=== PATIENT | female | born 1985 ===

== ENCOUNTER 2016-12-10 22:54 | Emergency (ER) | payer MEDICAID, OTHER ==
[2016-12-10 22:54] VITALS: BMI 29.5
[2016-12-10] MEDS ORDERED: Sodium Chloride 0.9% 1,000 ML IV ONE (23:45)
--- NOTE | 2016-12-11 00:05 | C.PDOC ---
History Of Present Illness 31 year old patient presents to the ED complaining of upper abdominal pain for the past 2 days. She also complains of mild vaginal spotting. Patient is 4 months . Patient denies fever, nausea, vomiting, diarrhea, dysuria, back pain, or heavy vaginal bleeding. Time Seen by Provider: 12/10/16 23:44 Chief Complaint (Nursing): Abdominal Pain History Per: Patient History/Exam Limitations: no limitations Onset/Duration Of Symptoms: Days (2) Current Symptoms Are (Timing): Still Present Context: Other Severity: Moderate Pain Scale Rating Of: 4 Location Of Pain/Discomfort: Epigastric Radiation Of Pain To:: None Quality Of Discomfort: "Pain" Associated Symptoms: Other (mild vaginal bleeding) Exacerbating Factors: None Alleviating Factors: None Last Bowel Movement: Today Recent travel outside of the [place]: No Past Medical History Reviewed: Historical Data, Nursing Documentation, Vital Signs Vital Signs: Last Vital Signs Temp 98.7 F 12/10/16 23:19 Pulse 88 12/10/16 23:19 Resp 20 12/10/16 23:19 BP 118/80 12/10/16 23:19 Pulse Ox 97 12/11/16 02:27 - Medical History PMH: Anemia, Anxiety, Asthma, Gastritis, Migraine - [facility] Procedures INJECT/INFUSE NEC (05/30/06) Family History: States: Unknown Family Hx - Social History Hx Tobacco Use: No Hx Alcohol Use: No Hx Substance Use: No - Immunization History Hx Tetanus Toxoid Vaccination: No Hx Influenza Vaccination: No Hx Pneumococcal Vaccination: No Review Of Systems Except As Marked, All Systems Reviewed And Found Negative. Constitutional: Negative for: Fever Gastrointestinal: Positive for: Abdominal Pain (upper). Negative for: Nausea, Vomiting, Diarrhea Genitourinary: Positive for: Vaginal Bleeding (mild). Negative for: Dysuria Musculoskeletal: Negative for: Back Pain Physical Exam - Physical Exam Appears: Non-toxic, No Acute Distress Skin: Warm, Dry Head: Atraumatic, Normacephalic Neck: Normal ROM, Supple Chest: Symmetrical Cardiovascular: Rhythm Regular Respiratory: Normal Breath Sounds, No Rales, No Rhonchi, No Wheezing Gastrointestinal/Abdominal: Soft, Tenderness (bilateral quadrants of the epigastrium), Distention (due to ), No Guarding, No Rebound Back: Normal Inspection, No CVA Tenderness Extremity: Normal ROM Neurological/Psych: Oriented x3, Normal Motor, Normal Sensation Gait: Steady ED Course And Treatment - Laboratory Results Result Diagrams: 12/11/16 01:12 12/11/16 01:12 O2 Sat by Pulse Oximetry: 97 (room air) Pulse Ox Interpretation: Normal - CT Scan/US Pelvic US Other Rad Studies (CT/US): Read By Radiologist (Vikki Smith MD), Radiology Report Reviewed CT/US Interpretation: EXAM: US Pelvis Complete, Transabdominal. US Pelvis, Transvaginal. CLINICAL HISTORY: 31 years old, female; Signs and symptoms; Other: Vag bleeding; ; Additional info: Suprapubic pain/ tenderness/ spotting. TECHNIQUE: Real-time transabdominal and transvaginal pelvic ultrasound (complete) with image documentation. Transvaginal imaging was used for better evaluation of the endometrium and adnexa. COMPARISON: No relevant prior studies available. FINDINGS: A single intrauterine gestation is identified in a transverse lie with the placenta anterior. motion is detected. The cervix measures 4.1 cm, and is closed. The placenta is located greater than 2 cm from the cervical os. The femur length measures 2.5 cm, corresponding to an approximate gestational age of 17 weeks. and 3 days. The head circumference measures 14 mm, corresponding to an approximate gestational age of 17. weeks and 2 days. The cord and inserts on the midline of the abdomen. A 3 vessel cord is detected. No hydronephrosis is detected. A four- chamber heart is noted. The spine is visualized in its entirety, although only in the sagittal plane but appears to be covered. cardiac activity is identified at a rate of 131 beats per minute. The BPD measures 3.6 cm, corresponding to an approximate gestational age of 17 weeks and 0. days. The abdominal circumference measures 11.8 cm, corresponding to an approximate gestational age. of 17 weeks and 4 days. The estimated weight measures 197 g +/ -29 g. Despite prolonged interrogation, neither ovary was visualized. No free fluid is detected within the pelvis. IMPRESSION: Limited ultrasound examination demonstrates a single intrauterine gestation with an approximate. gestational age of 17 weeks and 2 days. cardiac activity is identified. motion is detected. Additional measurements as detailed above. Short- term followup (with a formal anatomy scan) is suggested. Progress Note: Plan: Labs, IV fluids, Pelvic US Disposition Counseled Patient/Family Regarding: Diagnosis - Disposition Referrals: [facility] [Outside] Disposition: HOME/ ROUTINE Disposition Time: 03:33 Condition: STABLE Instructions: Abdominal Pain in (ED) - POA Present On Arrival: None - Clinical Impression Clinical Impression: , Abdominal pain affecting - Scribe Statement The provider has reviewed the documentation as recorded by the Scribe Sharri Hunt Provider Attestation: All medical record entries made by the Scribe were at my direction and personally dictated by me. I have reviewed the chart and agree that the record accurately reflects my personal performance of the history, physical exam, medical decision making, and the department course for this patient. I have also personally directed, reviewed, and agree with the discharge instructions and disposition.
[2016-12-11 01:19] LABS: BASO % 0.4 % (0.0-2.0); EOS # 0.4 K/uL (0.0-0.7); EOS % 3.6 % (0.0-4.0); HEMATOCRIT 35.7 % (34.0-47.0); LYMPH # 2.3 K/uL (1.0-4.3); LYMPH % 21.8 % (20.0-40.0); MEAN CELL VOLUME 85.6 fL (81.0-99.0); MEAN CORPUSCULAR HEMOGLOBIN 28.3 pg (27.0-31.0); MEAN CORPUSCULAR HGB CONC 33.1 g/dL (33.0-37.0); MEAN PLATELET VOLUME 8.5 fL (7.2-11.7); MONO # 0.9 K/uL (0.0-0.8); MONO % 8.4 % (0.0-10.0); RED CELL DISTRIBUTION WIDTH 13.6 % (11.5-14.5); WHITE BLOOD COUNT 10.6 K/uL (4.8-10.8)
[2016-12-11 01:25] LABS: CHLORIDE 104 mmol/L (98-107); SODIUM 136 mmol/L (132-148)
[2016-12-11 01:26] LABS: POTASSIUM 3.6 mmol/L (3.6-5.2)
[2016-12-11 01:28] LABS: ALB/GLOB RATIO 1.1 (1.0-2.1); ALKALINE PHOSPHATASE 49 U/L (38-126); AST/SGOT 16 U/L (14-36); BILIRUBIN,TOTAL 0.6 mg/dL (0.2-1.3); BLOOD UREA NITROGEN 9 mg/dL (7-17); CARBON DIOXIDE 22 mmol/L (22-30); GFR AFRICAN-AMERICAN > 60; GLUCOSE,RANDOM 93 mg/dL (65-105); TOTAL PROTEIN 6.5 g/dL (6.3-8.3)
[2016-12-11 01:29] LABS: ALT/SGPT 14 U/L (9-52)
[2016-12-11 01:56] LABS: CALCIUM 8.4 mg/dl (8.6-10.4)
[2016-12-11 03:39] VITALS: BP 100/66; PULSE 90; RESP 16; TEMP 98.3; O2SAT 98
--- NOTE | 2016-12-11 08:16 | US ---
EXAM: US Pelvis Complete, Transabdominal US Pelvis, Transvaginal CLINICAL HISTORY: 31 years old, female; Signs and symptoms; Other: Vag bleeding; ; Additional info: Suprapubic pain/ tenderness/ spotting TECHNIQUE: Real-time transabdominal and transvaginal pelvic ultrasound (complete) with image documentation. Transvaginal imaging was used for better evaluation of the endometrium and adnexa. COMPARISON: No relevant prior studies available. FINDINGS: A single intrauterine gestation is identified in a transverse lie with the placenta anterior. motion is detected. The cervix measures 4.1 cm, and is closed. The placenta is located greater than 2 cm from the cervical os. The femur length measures 2.5 cm, corresponding to an approximate gestational age of 17 weeks and 3 days. The head circumference measures 14 mm, corresponding to an approximate gestational age of 17 weeks and 2 days. The cord and inserts on the midline of the abdomen. A 3 vessel cord is detected. No hydronephrosis is detected. A four-chamber heart is noted. The spine is visualized in its entirety, although only in the sagittal plane but appears to be covered. cardiac activity is identified at a rate of 131 beats per minute. The BPD measures 3.6 cm, corresponding to an approximate gestational age of 17 weeks and 0 days. The abdominal circumference measures 11.8 cm, corresponding to an approximate gestational age of 17 weeks and 4 days. The estimated weight measures 197 g +/ -29 g. Despite prolonged interrogation, neither ovary was visualized. No free fluid is detected within the pelvis. IMPRESSION: Limited ultrasound examination demonstrates a single intrauterine gestation with an approximate gestational age of 17 weeks and 2 days. cardiac activity is identified. motion is detected. Additional measurements as detailed above. Short-term followup (with a formal anatomy scan) is suggested.
== END 2016-12-11 03:44 | disposition home or self-care (01) ==
LOC: C.ER 22:54
DX: O26.892 Other specified pregnancy related conditions, second trimester (principal); R10.13 Epigastric pain; Z3A.17 17 weeks gestation of pregnancy
CPT/HCPCS: 76815; 80053; 84702; 85025; 85610; 85730; 86850; 86900; 99284; J7040

== ENCOUNTER 2016-12-16 20:18 | Inpatient (IN) | payer MEDICAID ==
[2016-12-16 20:18] VITALS: BMI 29.5
--- NOTE | 2016-12-16 21:16 | C.PDOC ---
History Of Present Illness 31 year old patient, with a past medical history of Anemia, Anxiety, Asthma, Gastritis, and Migraine, presents to the ED complaining of episodes of anxiety, dizziness, and shaking for the past couple of months. Patient is also 4 months . She followed up with her physician last month about her episodes. She starts to feel dizzy and light headed, then she begins to shake. She also bites her tongue, becomes unresponsive, and wakes up forgetting what happened. The episodes last about 3-5 minutes and patient has been amnesic about them. Patient denies fever, nausea, vomiting, shortness of breath, chest pain, numbness, weakness, or headaches. She was referred to the ED by Dr Vargas for admission and neurology evaluation. Family History: Patient's sister has a history of seizures. Time Seen by Provider: 12/16/16 20:42 Chief Complaint (Nursing): Seizure History Per: Patient, Family () History/Exam Limitations: no limitations Recent Seizure Activity Began: Weeks Ago: (for a couple of months) Length Of Seizures (Duration): Minutes (3-5) Quality Of Seizure: Generalized Associated Symptoms: Bit Tongue Post-ictal Period: Duration Unknown Severity: None Pain Scale Rating Of: 0 Recent travel outside of the [place]: No Past Medical History Reviewed: Historical Data, Nursing Documentation, Vital Signs Vital Signs: Last Vital Signs Temp 98.3 F 12/16/16 20:34 Pulse 100 H 12/16/16 20:34 Resp 18 12/16/16 20:34 BP 117/80 12/16/16 20:34 Pulse Ox 98 12/16/16 21:23 - Medical History PMH: Anemia, Anxiety, Asthma, Gastritis, Migraine - [facility] Procedures INJECT/INFUSE NEC (05/30/06) Family History: States: Unknown Family Hx - Social History Hx Tobacco Use: No Hx Alcohol Use: No Hx Substance Use: No - Immunization History Hx Tetanus Toxoid Vaccination: No Hx Influenza Vaccination: No Hx Pneumococcal Vaccination: No Review Of Systems Except As Marked, All Systems Reviewed And Found Negative. Constitutional: Negative for: Fever Cardiovascular: Positive for: Light Headedness. Negative for: Chest Pain Respiratory: Negative for: Shortness of Breath Gastrointestinal: Negative for: Nausea, Vomiting Neurological: Positive for: Seizures, Dizziness, Other (shaking). Negative for : Weakness, Numbness, Headache Psych: Positive for: Anxiety Physical Exam - Physical Exam Appears: Non-toxic, No Acute Distress Skin: Warm, Dry Head: Atraumatic, Normacephalic Eye(s): bilateral: Normal Inspection, PERRL, EOMI Ear(s): Bilateral: Normal Nose: Normal Oral Mucosa: Moist Throat: Normal Neck: Normal ROM, Supple Chest: Symmetrical Cardiovascular: Rhythm Regular Respiratory: Normal Breath Sounds, No Rales, No Rhonchi, No Wheezing Gastrointestinal/Abdominal: Soft, No Tenderness, No Guarding, No Rebound Back: Normal Inspection, No CVA Tenderness, No Vertebral Tenderness Extremity: Normal ROM Neurological/Psych: Oriented x3, Normal Speech, Normal Cognition, Normal Motor, Normal Sensation Gait: Steady ED Course And Treatment - Laboratory Results Result Diagrams: 12/16/16 21:15 12/16/16 21:15 Lab Interpretation: Abnormal (Mild hypokalemia, HCO3 21) O2 Sat by Pulse Oximetry: 98 (room air) Pulse Ox Interpretation: Normal - Physician Consult Information Time Consulting Physician Contacted: 22:22 Physician Contacted: Meño Vargas Outcome Of Conversation: Patient to be admitted for neurology evaluation and treatment. Case discussed with Dr Higgins who advises starting Keppra 500mg BID and he will see her in consult. Medical Decision Making Medical Decision Making: Plan: * Labs Progress: heart tones are present in the LLQ at a rate of 140 bpm. Disposition - Disposition Disposition: HOSPITALIZED Disposition Time: 22:23 Condition: STABLE - POA Present On Arrival: None - Clinical Impression Clinical Impression: Seizure disorder, - Scribe Statement The provider has reviewed the documentation as recorded by the Juan Luisibteetee Hunt Provider Attestation: All medical record entries made by the Juan Luisibteetee were at my direction and personally dictated by me. I have reviewed the chart and agree that the record accurately reflects my personal performance of the history, physical exam, medical decision making, and the department course for this patient. I have also personally directed, reviewed, and agree with the discharge instructions and disposition.
[2016-12-16 21:22] LABS: BASO # 0.1 K/uL (0.0-0.2); BASO % 0.5 % (0.0-2.0); EOS # 0.2 K/uL (0.0-0.7); EOS % 1.8 % (0.0-4.0); HEMATOCRIT 36.5 % (34.0-47.0); LYMPH # 2.1 K/uL (1.0-4.3); LYMPH % 19.5 % (20.0-40.0); MEAN CORPUSCULAR HEMOGLOBIN 28.6 pg (27.0-31.0); MEAN CORPUSCULAR HGB CONC 34.1 g/dL (33.0-37.0); MEAN PLATELET VOLUME 8.5 fL (7.2-11.7); MONO # 0.6 K/uL (0.0-0.8); MONO % 5.9 % (0.0-10.0); RED CELL DISTRIBUTION WIDTH 13.6 % (11.5-14.5); WHITE BLOOD COUNT 10.6 K/uL (4.8-10.8)
[2016-12-16 21:33] LABS: CHLORIDE 101 mmol/L (98-107); SODIUM 133 mmol/L (132-148)
[2016-12-16 21:34] LABS: POTASSIUM 3.2 mmol/L (3.6-5.2)
[2016-12-16 21:35] LABS: GFR AFRICAN-AMERICAN > 60
[2016-12-16 21:36] LABS: ALB/GLOB RATIO 1.1 (1.0-2.1); ALKALINE PHOSPHATASE 53 U/L (38-126); ALT/SGPT 12 U/L (9-52); AST/SGOT 15 U/L (14-36); BILIRUBIN,TOTAL 0.5 mg/dL (0.2-1.3); BLOOD UREA NITROGEN 8 mg/dL (7-17); CARBON DIOXIDE 21 mmol/L (22-30); GLUCOSE,RANDOM 182 mg/dL (65-105); TOTAL PROTEIN 6.8 g/dL (6.3-8.3)
[2016-12-16 21:37] LABS: CALCIUM 8.7 mg/dl (8.6-10.4)
[2016-12-16] MEDS ORDERED: Potassium Chloride 20 mEq ER Tab PO STA (21:40)
[2016-12-16] MEDS ORDERED: Potassium Chloride 20 mEq ER Tab PO ONE (21:48)
[2016-12-16 21:49] LABS: RBC URINE 13 /hpf (0-3); TRANSITIONAL EPITHIAL < 1 /hpf (0-3); URINE BACTERIA RARE (<OCC); URINE BILIRUBIN NEGATIVE (NEGATIVE); URINE BLOOD 2+ (NEGATIVE); URINE COLOR Yellow (YELLOW); URINE GLUCOSE (UA) 3+ mg/dL (Normal); URINE KETONE 1+ mg/dL (NEGATIVE); URINE LEUKOCYTE ESTERASE NEG Leu/uL (Negative); URINE PROTEIN NEGATIVE (NEGATIVE); WBC URINE 3 /hpf (0-5)
[2016-12-16] MEDS ORDERED: Magnesium Sulfate 1 gm in D5W 1 GM/100 ML BAG IVPB STA (23:24)
[2016-12-16] MEDS ORDERED: Magnesium Sulfate 1 gm in D5W 1 GM/100 ML BAG IVPB ONE (23:31)
[2016-12-17] MEDS ORDERED: Magnesium Sulfate 1 gm in D5W 1 GM/100 ML BAG IVPB ONE (00:01)
[2016-12-17 09:16] LABS: BASO % 0.5 % (0.0-2.0); EOS # 0.3 K/uL (0.0-0.7); EOS % 3.5 % (0.0-4.0); HEMATOCRIT 36.3 % (34.0-47.0); LYMPH # 1.8 K/uL (1.0-4.3); LYMPH % 22.3 % (20.0-40.0); MEAN CELL VOLUME 85.2 fL (81.0-99.0); MEAN CORPUSCULAR HEMOGLOBIN 28.7 pg (27.0-31.0); MEAN CORPUSCULAR HGB CONC 33.7 g/dL (33.0-37.0); MEAN PLATELET VOLUME 8.1 fL (7.2-11.7); MONO # 0.5 K/uL (0.0-0.8); MONO % 6.2 % (0.0-10.0); RED CELL DISTRIBUTION WIDTH 13.4 % (11.5-14.5); WHITE BLOOD COUNT 8.3 K/uL (4.8-10.8)
[2016-12-17 09:29] LABS: CHLORIDE 104 mmol/L (98-107)
[2016-12-17 09:30] LABS: SODIUM 134 mmol/L (132-148)
[2016-12-17 09:32] LABS: ALKALINE PHOSPHATASE 47 U/L (38-126); ALT/SGPT 12 U/L (9-52); AST/SGOT 14 U/L (14-36); BILIRUBIN,TOTAL 0.6 mg/dL (0.2-1.3); BLOOD UREA NITROGEN 8 mg/dL (7-17); CARBON DIOXIDE 21 mmol/L (22-30); GFR AFRICAN-AMERICAN > 60; GLUCOSE,RANDOM 113 mg/dL (65-105); TOTAL PROTEIN 6.3 g/dL (6.3-8.3)
[2016-12-17 09:33] LABS: CALCIUM 8.2 mg/dl (8.6-10.4); MAGNESIUM 1.9 mg/dL (1.6-2.3); PHOSPHOROUS 4.6 mg/dL (2.5-4.5)
--- NOTE | 2016-12-17 12:35 | CP.PCM.HP ---
History of Present Illness - History of Present Illness History of Present Illness: Cheif complain: seizure episode 31 year old patient who is 4 months , with a past medical history of Anemia, Anxiety, Asthma, Gastritis, and Migraine, presents to the ED complaining of episodes of anxiety, dizziness, and shaking for the past couple of months. Patient is also 4 months . She followed up with her physician last month about her episodes. She starts to feel dizzy and light headed, then she begins to shake. She also bites her tongue, becomes unresponsive, and wakes up forgetting what happened. The episodes last about 3- 5 minutes and patient has been amnesic about them. Patient denies fever, nausea , vomiting, shortness of breath, chest pain, numbness, weakness, or headaches. She was seen by me in office and was admitted inpatient for neurology evaluation. Family History: Patient's sister has a history of seizures. Present on Admission - Present on Admission Any Indicators Present on Admission: No Review of Systems - Review of Systems Systems not reviewed;Unavailable: Acuity of Condition - Constitutional Constitutional: Fatigue, Lethargy - EENT Eyes: absent: As Per HPI, Blind Spots, Blurred Vision, Change in Vision, Decreased Night Vision, Diplopia, Discharge, Dry Eye, Exophthalmos, Floaters, Irritation, Itchy Eyes, Loss of Peripheral Vision, Pain, Photophobia, Requires Corrective Lenses, Sees Flashes, Spots in Vision, Tunnel Vision, Other Visual Disturbances, Loss of Vision, Other Nose/Mouth/Throat: absent: As Per HPI, Epistaxis, Nasal Congestion, Nasal Discharge, Nasal Obstruction, Nasal Trauma, Nose Pain, Post Nasal Drip, Sinus Pain, Sinus Pressure, Bleeding Gums, Change in Voice, Dental Pain, Dry Mouth, Dysphagia, Halitosis, Hoarsness, Lip Swelling, Mouth Lesions, Mouth Pain, Odynophagia, Sore Throat, Throat Swelling, Tongue Swelling, Facial Pain, Neck Pain, Neck Mass, Other - Cardiovascular Cardiovascular: Dyspnea - Respiratory Respiratory: absent: As Per HPI, Cough, Dyspnea, Hemoptysis, Dyspnea on Exertion , Wheezing, Snoring, Stridor, Pain on Inspiration, Chest Congestion, Excessive Mucous Production, Change in Mucous Color, Pain with Coughing, Other - Menstruation Menstruation: Amenorrhea, Other Additional comments: - Musculoskeletal Musculoskeletal: absent: As Per HPI, Abnormal Gait, Arthralgias, Atrophy, Back Pain, Deformity, Joint Swelling, Limited Range of Motion, Loss of Height, Muscle Cramps, Muscle Weakness, Myalgias, Neck Pain, Numbness, Radiating Pain into Limb, Stiffness, Tingling, Other - Integumentary Integumentary: absent: As Per HPI, Acne, Alopecia, Bleeding Lesions, Change in Hair, Change in Nails, Change in Pigmentation, Changing Lesions, Dry Skin, Erythema, Furuncle, Hirsutism, Lesions, New Lesions, Non-Healing Lesions, Photosensitivity, Pruritus, Rash, Skin Pain, Skin Ulcer, Sores, Striae, Swelling , Unusual Bruising, Wounds, Jaundice, Other Past Patient History - Infectious Disease Hx of Infectious Diseases: None - Past Medical History & Family History Past Medical History?: Yes - Past Social History Smoking Status: Never Smoked - CARDIAC Hx Cardiac Disorders: No - PULMONARY Hx Respiratory Disorders: Yes Hx Asthma: Yes - NEUROLOGICAL Hx Neurological Disorder: Yes Hx Migraine: Yes Hx Seizures: Yes - HEENT Hx HEENT Problems: No - RENAL Hx Chronic Kidney Disease: No - ENDOCRINE/METABOLIC Hx Endocrine Disorders: No - HEMATOLOGICAL/ONCOLOGICAL Hx Blood Disorders: Yes Hx Anemia: Yes - INTEGUMENTARY Hx Dermatological Problems: No - MUSCULOSKELETAL/RHEUMATOLOGICAL Hx Musculoskeletal Disorders: No Hx Falls: No - GASTROINTESTINAL Hx Gastrointestinal Disorders: Yes Hx Gastritis: Yes - GENITOURINARY/GYNECOLOGICAL Hx Genitourinary Disorders: No - PSYCHIATRIC Hx Psychophysiologic Disorder: Yes Hx Anxiety: Yes Hx Substance Use: No - SURGICAL HISTORY Hx Surgeries: Yes Hx Dilation and Curettage: Yes (for missed at 14 wga) - ANESTHESIA Hx Anesthesia: Yes Hx Anesthesia Reactions: No Hx Malignant Hyperthermia: No Meds Allergies/Adverse Reactions: Allergies Allergy/AdvReac Type Severity Reaction Status Date / Time morphine Allergy RASH Verified 12/23/16 02:51 onion Allergy ITCHING Verified 12/23/16 02:51 Physical Exam - Constitutional Appears: No Acute Distress - Head Exam Head Exam: ATRAUMATIC, NORMAL INSPECTION, NORMOCEPHALIC - Eye Exam Eye Exam: EOMI, Normal appearance, PERRL Pupil Exam: NORMAL ACCOMODATION, PERRL - ENT Exam ENT Exam: Mucous Membranes Moist, Normal Exam - Respiratory Exam Respiratory Exam: Clear to Auscultation Bilateral, NORMAL BREATHING PATTERN - Cardiovascular Exam Cardiovascular Exam: REGULAR RHYTHM, +S1, +S2 - GI/Abdominal Exam GI & Abdominal Exam: Normal Bowel Sounds, Soft. absent: Tenderness - Rectal Exam Rectal Exam: Deferred, NORMAL INSPECTION Results - Vital Signs Recent Vital Signs: Last Vital Signs Temp 98 F 12/17/16 00:20 Pulse 84 12/17/16 00:20 Resp 20 12/17/16 00:20 BP 111/75 12/17/16 00:20 Pulse Ox 97 12/17/16 00:20 - Labs Result Diagrams: 12/18/16 11:49 12/18/16 11:49 Labs: Laboratory Results - last 24 hr 12/16/16 12/17/16 12/17/16 23:16 09:07 09:07 WBC 8.3 RBC 4.26 Hgb 12.2 Hct 36.3 MCV 85.2 MCH 28.7 MCHC 33.7 RDW 13.4 Plt Count 255 MPV 8.1 Neut % (Auto) 67.5 Lymph % (Auto) 22.3 Lares % (Auto) 6.2 Eos % (Auto) 3.5 Baso % (Auto) 0.5 Neut # 5.6 Lymph # 1.8 Lares # 0.5 Eos # 0.3 Baso # 0.0 Sodium 134 Potassium 4.0 Chloride 104 Carbon Dioxide 21 L Anion Gap 13 BUN 8 Creatinine 0.4 L Est GFR ( Amer) > 60 Est GFR (Non-Af Amer) > 60 POC Glucose (mg/dL) 108 Random Glucose 113 H Calcium 8.2 L Phosphorus 4.6 H Magnesium 1.9 Total Bilirubin 0.6 AST 14 ALT 12 Alkaline Phosphatase 47 Total Protein 6.3 Albumin 3.1 L Globulin 3.1 Albumin/Globulin Ratio 1.0 Prolactin 113.3 H Assessment & Plan (1) Status: Acute (2) Seizure disorder Status: Acute
[2016-12-17] MEDS ORDERED: Mag&Al/Simet/Diphen/Lido 237 ML KIT PO PRN (14:56)
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
--- NOTE | 2016-12-17 15:42 | CP.PCM.PN ---
<Marie Mcintosh - Last Filed: 12/17/16 15:38> Subjective - Date & Time of Evaluation Date of Evaluation: 12/17/16 Time of Evaluation: 09:00 - Subjective Subjective: House Doctor was called to evaluate patient. She was have tremors and had the sensation of biting her tongue. She did not actively convulse, lose consciousness or any urinary or bowel incontinence. The patient stated she has been having these episodes for the past 6 months prior to her . She was able to converse with me throughout the entire episode which lasted less than 3-4 minutes. She stated she never had a history of seizures. She was given a dose of Keppra the night prior in the ED which stopped her symptoms. OB was consulted. Neurology was consulted, EEG and Brain MRI was ordered. No ativan was given (CAT D in ) and as per Dr. Higgins no keppra was to be administered. Objective - Vital Signs/Intake and Output Vital Signs (last 24 hours): Temp Pulse Resp BP Pulse Ox 98 F 84 20 111/75 97 12/17/16 00:20 12/17/16 00:20 12/17/16 00:20 12/17/16 00:20 12/17/16 00:20 - Medications Medications: Current Medications Folic Acid (Folic Acid) 4 mg PO DAILY [facility] Multivit/Folic Acid/Iron () 1 tab PO DAILY [facility] Saliva Substitute (First Magic Mouthwash) 5 ml PO Q8 PRN - Labs Labs: 12/17/16 09:07 12/17/16 09:07 <Kelley Nguyễn V - Last Filed: 12/18/16 23:40> Objective - Vital Signs/Intake and Output Vital Signs (last 24 hours): Temp Pulse Resp BP Pulse Ox 98.2 F 104 H 18 112/73 95 12/18/16 16:00 12/18/16 19:53 12/18/16 16:00 12/18/16 16:00 12/18/16 16:00 Intake and Output: 12/18/16 12/19/16 18:59 06:59 Intake Total 1240 Balance 1240 - Medications Medications: Current Medications Acetaminophen (Tylenol 325mg Tab) 650 mg PO Q6 PRN PRN Reason: Headache Last Admin: 12/18/16 20:57 Dose: 650 mg Folic Acid (Folic Acid) 4 mg PO DAILY [facility] Last Admin: 12/18/16 09:49 Dose: 4 mg Levetiracetam (Keppra) 750 mg PO BID [facility] Last Admin: 12/18/16 17:45 Dose: 750 mg Multivit/Folic Acid/Iron () 1 tab PO DAILY [facility] Last Admin: 12/18/16 09:49 Dose: 1 tab Saliva Substitute (First Magic Mouthwash) 5 ml PO Q8 PRN Attending/Attestation - Attestation I have personally seen and examined this patient.: Yes I have fully participated in the care of the patient.: Yes I have reviewed all pertinent clinical information, including history, physical exam and plan: Yes Notes (Text): Late entry: Hospitalist Note Asked by nursing staff to evaluate patient who appears to have seizure. Patient reports at bedside she has been having seizures for the past 6 months prior to becoming . Patient does not know why. She is awake, alert, oriented X3. Patient reports she had received Keppra ( category C) which she reports helps her symptoms. Patient describes her seizures as twitching motion of upper extremities and sensation of biting her tongue while awake. She reports she has not had a workup for seizures. I discussed risk and benefit of benzos such as Ativan with patient given that patient is , ativan not given at this time, and she reports is feeling better. Resident spoke with neurologist on the case, Dr Higgins who recommended for EEG and Brain MRI was ordered and ob-shoddy mill worker consulted on the case.
[2016-12-17] MEDS: Prenatal Multivit/Folic Acid/Iron Tab PO SCH (16:37)
--- NOTE | 2016-12-17 17:37 | CP.PCM.CON ---
History of Present Illness - History of Present Illness History of Present Illness: Ms. Hopkins is a 31-year-old woman with a past medical history of migraine headaches, anxiety and epilepsy with a diagnosis 6 months ago, who was started on Keppra and was doing well. However, she became and stopped Keppra due to concern for the fetus. She is now 4 months and has been having increased frequency of episodes of confusion, tongue biting and jerky movements that last 3-5 minutes with subsequent lack of recall for the events and transient disorientation. Review of Systems - Review of Systems All systems: reviewed and no additional remarkable complaints except Past Patient History - Infectious Disease Hx of Infectious Diseases: None - Past Medical History & Family History Past Medical History?: Yes - Past Social History Smoking Status: Never Smoked - CARDIAC Hx Cardiac Disorders: No - PULMONARY Hx Respiratory Disorders: Yes Hx Asthma: Yes - NEUROLOGICAL Hx Neurological Disorder: Yes Hx Migraine: Yes Hx Seizures: Yes - HEENT Hx HEENT Problems: No - RENAL Hx Chronic Kidney Disease: No - ENDOCRINE/METABOLIC Hx Endocrine Disorders: No - HEMATOLOGICAL/ONCOLOGICAL Hx Blood Disorders: Yes Hx Anemia: Yes - INTEGUMENTARY Hx Dermatological Problems: No - MUSCULOSKELETAL/RHEUMATOLOGICAL Hx Musculoskeletal Disorders: No Hx Falls: No - GASTROINTESTINAL Hx Gastrointestinal Disorders: Yes Hx Gastritis: Yes - GENITOURINARY/GYNECOLOGICAL Hx Genitourinary Disorders: No - PSYCHIATRIC Hx Psychophysiologic Disorder: Yes Hx Anxiety: Yes Hx Substance Use: No - SURGICAL HISTORY Hx Surgeries: Yes Hx Dilation and Curettage: Yes (for missed at 14 wga) - ANESTHESIA Hx Anesthesia: Yes Hx Anesthesia Reactions: No Hx Malignant Hyperthermia: No Meds Allergies/Adverse Reactions: Allergies Allergy/AdvReac Type Severity Reaction Status Date / Time morphine Allergy RASH Verified 12/16/16 20:40 onion Allergy ITCHING Verified 12/16/16 20:42 - Medications Medications: Current Medications Folic Acid (Folic Acid) 4 mg PO DAILY MAX Last Admin: 12/17/16 16:37 Dose: 4 mg Multivit/Folic Acid/Iron () 1 tab PO DAILY MAX Last Admin: 12/17/16 16:37 Dose: 1 tab Saliva Substitute (First Magic Mouthwash) 5 ml PO Q8 PRN Physical Exam - Constitutional Appears: Well - Head Exam Head Exam: ATRAUMATIC, NORMAL INSPECTION, NORMOCEPHALIC - Eye Exam Eye Exam: EOMI, Normal appearance, PERRL - ENT Exam ENT Exam: Mucous Membranes Moist, Normal Exam - Respiratory Exam Respiratory Exam: Clear to Auscultation Bilateral, NORMAL BREATHING PATTERN - Cardiovascular Exam Cardiovascular Exam: REGULAR RHYTHM, +S1, +S2 - GI/Abdominal Exam GI & Abdominal Exam: Normal Bowel Sounds, Soft. absent: Tenderness - Neurological Exam Neurological exam: Alert, CN II-XII Intact, Normal Gait, Oriented x3, Reflexes Normal - Expanded Neurological Exam Expanded Patient oriented to: person, place, time Cranial nerves: EOM's Intact: Normal, Nystagmus: Normal Cerebellar Function: Finger to Nose: Normal, Heel to Reynolds: Normal, Romberg: Normal Upper motor neuron: Babinski Sign: Normal Sensory exam: Lower Extremity 2 Point Discrimination: Normal, Lower Extremity Light Touch: Normal, Lower Extremity Pin Prick: Normal, Lower Extremity Temperature: Normal, Upper Extremity 2 Point Discrimination: Normal, Upper Extremity Light Touch: Normal, Upper Extremity Pin Prick: Normal, Upper Extremity Temperature: Normal Neuro motor strength exam: Left Upper Extremity: 5, Right Upper Extremity: 5, Left Lower Extremity: 5, Right Lower Extremity: 5 DTR: Achilles Tendon Left: 2+, Achilles Tendon Right: 2+, Bicep Left: 2+, Bicep Right: 2+, Brachioradialis Left: 2+, Brachioradialis Right: 2+, Patellar Left: 2 +, Patellar Right: 2+, Tricep Left: 2+, Tricep Right: 2+ - Psychiatric Exam Psychiatric exam: Normal Affect, Normal Mood - Skin Skin Exam: Dry, Intact, Normal Color, Warm Results - Vital Signs Recent Vital Signs: Last Vital Signs Temp 98 F 12/17/16 00:20 Pulse 84 12/17/16 00:20 Resp 20 12/17/16 00:20 BP 111/75 12/17/16 00:20 Pulse Ox 97 12/17/16 00:20 - Labs Result Diagrams: 12/17/16 09:07 12/17/16 09:07 Labs: Laboratory Results - last 24 hr 12/16/16 12/17/16 12/17/16 23:16 09:07 09:07 WBC 8.3 RBC 4.26 Hgb 12.2 Hct 36.3 MCV 85.2 MCH 28.7 MCHC 33.7 RDW 13.4 Plt Count 255 MPV 8.1 Neut % (Auto) 67.5 Lymph % (Auto) 22.3 [place] % (Auto) 6.2 Eos % (Auto) 3.5 Baso % (Auto) 0.5 Neut # 5.6 Lymph # 1.8 [place] # 0.5 Eos # 0.3 Baso # 0.0 Sodium 134 Potassium 4.0 Chloride 104 Carbon Dioxide 21 L Anion Gap 13 BUN 8 Creatinine 0.4 L Est GFR ( Amer) > 60 Est GFR (Non-Af Amer) > 60 POC Glucose (mg/dL) 108 Random Glucose 113 H Calcium 8.2 L Phosphorus 4.6 H Magnesium 1.9 Total Bilirubin 0.6 AST 14 ALT 12 Alkaline Phosphatase 47 Total Protein 6.3 Albumin 3.1 L Globulin 3.1 Albumin/Globulin Ratio 1.0 Prolactin 113.3 H Assessment & Plan (1) Seizure disorder Assessment and Plan: Due to the risk for both mother and child that seizures can create, I recommend resuming Keppra at 500 mg BID and following up with neurology as an outpatient. Lamictal is another possibility, but this would need to be titrated under supervision. An MRI of the brain without contrast and an EEG are also recommended. The patient was informed that she should not drive for 3 months after a seizure with loss of consciousness according to the law in [place]. Status: Acute
--- NOTE | 2016-12-17 22:49 | CP.PCM.PN ---
Subjective - Date & Time of Evaluation Date of Evaluation: 12/17/16 Time of Evaluation: 12:07 - Subjective Subjective: Pt seen and examined, also seen by neurology EEG and MRI brain ordered, pt has been started on keppra for seizure disorder, she is 4 months and her prolactin is high too, pt needs further evaluation for medical management Objective - Vital Signs/Intake and Output Vital Signs (last 24 hours): Temp Pulse Resp BP Pulse Ox 98.2 F 90 20 100/67 100 12/17/16 16:00 12/17/16 16:00 12/17/16 16:00 12/17/16 16:00 12/17/16 16:00 - Medications Medications: Current Medications Folic Acid (Folic Acid) 4 mg PO DAILY [facility] Last Admin: 12/17/16 16:37 Dose: 4 mg Levetiracetam (Keppra) 500 mg PO BID [facility] Last Admin: 12/17/16 17:46 Dose: 500 mg Multivit/Folic Acid/Iron () 1 tab PO DAILY [facility] Last Admin: 12/17/16 16:37 Dose: 1 tab Saliva Substitute (First Magic Mouthwash) 5 ml PO Q8 PRN - Labs Labs: 12/17/16 09:07 12/17/16 09:07 - Constitutional Appears: No Acute Distress - Head Exam Head Exam: ATRAUMATIC, NORMAL INSPECTION, NORMOCEPHALIC - Eye Exam Eye Exam: EOMI, Normal appearance, PERRL Pupil Exam: NORMAL ACCOMODATION, PERRL - Respiratory Exam Respiratory Exam: Clear to Ausculation Bilateral, NORMAL BREATHING PATTERN - Cardiovascular Exam Cardiovascular Exam: REGULAR RHYTHM, +S1, +S2. absent: Murmur - GI/Abdominal Exam GI & Abdominal Exam: Soft, Normal Bowel Sounds. absent: Tenderness Assessment and Plan (1) Status: Acute (2) Seizure disorder Status: Acute
--- NOTE | 2016-12-18 09:04 | US ---
PROCEDURE: Obstetrical ultrasound examination HISTORY: 4 month COMPARISON: 12/11/2016 TECHNIQUE: Transabdominal FINDINGS: There is a single live intrauterine gestation in breech presentation. The heart rate is 129 beats per minute. A grossly normal quantity of amniotic fluid is visualized. Cervix is closed and measures 4.5 cm in length. There is no evidence of placenta previa. A normal anterior placenta is identified. biometry yields a gestational age of 18 weeks 0 days. The HANNAH by ultrasound is 05/20/2017. There has been appropriate interval growth since the prior ultrasound examination. The EFW is 230.40 g. Limited review of anatomy demonstrates fluid distending the stomach and urinary bladder. A 4 chamber heart is demonstrated. The anterior abdominal wall is intact. IMPRESSION: Single live intrauterine gestation of approximately 18 weeks 0 days gestational age. No gross anatomic abnormality. anatomic evaluation was limited at this time. Breech presentation. Normal amniotic fluid volume. Anterior placenta. No previa. heart rate 129 beats per minute.
[2016-12-18] MEDS: Prenatal Multivit/Folic Acid/Iron Tab PO SCH (09:49)
[2016-12-18] MEDS ORDERED: Sodium Chloride 0.9% 1,000 ML IV SCH (11:15)
[2016-12-18 12:04] LABS: BASO # 0.1 K/uL (0.0-0.2); BASO % 0.7 % (0.0-2.0); EOS # 0.3 K/uL (0.0-0.7); EOS % 2.7 % (0.0-4.0); HEMATOCRIT 39.3 % (34.0-47.0); LYMPH # 1.8 K/uL (1.0-4.3); LYMPH % 17.8 % (20.0-40.0); MEAN CORPUSCULAR HEMOGLOBIN 28.7 pg (27.0-31.0); MEAN CORPUSCULAR HGB CONC 33.8 g/dL (33.0-37.0); MEAN PLATELET VOLUME 8.5 fL (7.2-11.7); MONO # 0.7 K/uL (0.0-0.8); MONO % 6.7 % (0.0-10.0); RED CELL DISTRIBUTION WIDTH 13.7 % (11.5-14.5); WHITE BLOOD COUNT 9.9 K/uL (4.8-10.8)
[2016-12-18 12:14] LABS: CHLORIDE 103 mmol/L (98-107); SODIUM 133 mmol/L (132-148)
--- NOTE | 2016-12-18 12:15 | CP.PCM.PN ---
Subjective - Date & Time of Evaluation Date of Evaluation: 12/18/16 Time of Evaluation: 12:09 - Subjective Subjective: Mrs. Hopkins was seen and examined today at bedside. She was in NAD, but slightly somnolent. She reportedly had a seizure while in the MRI this morning. She was given a .5 mg dose of Ativan. I asked for her Keppra to be increased to 750 mg BID. She complained of pain on the lateral aspect of the left side of her tongue where it was bitten. Objective - Vital Signs/Intake and Output Vital Signs (last 24 hours): Temp Pulse Resp BP Pulse Ox 98.1 F 83 20 101/66 96 12/18/16 07:05 12/18/16 07:05 12/18/16 07:05 12/18/16 07:05 12/18/16 07:05 Intake and Output: 12/18/16 12/18/16 06:59 18:59 Intake Total 600 Balance 600 - Medications Medications: Current Medications Folic Acid (Folic Acid) 4 mg PO DAILY [facility] Last Admin: 12/18/16 09:49 Dose: 4 mg Sodium Chloride (Sodium Chloride 0.9%) 1,000 mls @ 100 mls/hr IV .Q10H [facility] Stop: 12/18/16 21:14 Last Admin: 12/18/16 11:25 Dose: 100 mls/hr Levetiracetam (Keppra) 750 mg PO BID [facility] Multivit/Folic Acid/Iron () 1 tab PO DAILY [facility] Last Admin: 12/18/16 09:49 Dose: 1 tab Saliva Substitute (First Magic Mouthwash) 5 ml PO Q8 PRN - Labs Labs: 12/18/16 11:49 12/17/16 09:07 - Constitutional Appears: Well - Head Exam Head Exam: ATRAUMATIC, NORMAL INSPECTION, NORMOCEPHALIC - Eye Exam Eye Exam: EOMI, Normal appearance, PERRL - Neck Exam Neck Exam: Full ROM, Normal Inspection. absent: Lymphadenopathy - Respiratory Exam Respiratory Exam: Clear to Ausculation Bilateral, NORMAL BREATHING PATTERN - Cardiovascular Exam Cardiovascular Exam: REGULAR RHYTHM, +S1, +S2. absent: Murmur - GI/Abdominal Exam GI & Abdominal Exam: Soft, Normal Bowel Sounds. absent: Tenderness - Neurological Exam Neurological Exam: Alert, Awake, CN II-XII Intact, Normal Gait, Oriented x3 Neuro motor strength exam: Left Upper Extremity: 5, Right Upper Extremity: 5, Left Lower Extremity: 5, Right Lower Extremity: 5 - Psychiatric Exam Psychiatric exam: Normal Affect, Normal Mood - Skin Skin Exam: Dry, Intact, Normal Color, Warm Assessment and Plan (1) Seizure disorder Assessment & Plan: Refractory to the current dose of Keppra. Will increase to 750 mg BID and continue observation. Will follow MRI and EEG results. Status: Acute
[2016-12-18 12:16] LABS: BILIRUBIN,TOTAL 0.4 mg/dL (0.2-1.3); GFR AFRICAN-AMERICAN > 60
[2016-12-18 12:17] LABS: ALB/GLOB RATIO 0.9 (1.0-2.1); ALKALINE PHOSPHATASE 58 U/L (38-126); ALT/SGPT 18 U/L (9-52); AST/SGOT 13 U/L (14-36); BLOOD UREA NITROGEN 5 mg/dL (7-17); CARBON DIOXIDE 21 mmol/L (22-30); GLUCOSE,RANDOM 92 mg/dL (65-105); PHOSPHOROUS 3.5 mg/dL (2.5-4.5); TOTAL PROTEIN 6.7 g/dL (6.3-8.3)
[2016-12-18 12:18] LABS: CALCIUM 8.7 mg/dl (8.6-10.4); MAGNESIUM 1.8 mg/dL (1.6-2.3)
--- NOTE | 2016-12-18 13:50 | MRI ---
PROCEDURE: MRI BRAIN WITHOUT CONTRAST HISTORY: hx seizures COMPARISON: None. TECHNIQUE: Multiplanar, multisequence MR images of the brain were obtained without intravenous contrast enhancement. FINDINGS: HEMORRHAGE: None DWI: No evidence of an acute or early subacute infarction. BRAIN PARENCHYMA: No mass effect or edema. No atrophy or chronic microvascular ischemic changes. VENTRICLES: Unremarkable. No hydrocephalus. CRANIUM: Unremarkable. ORBITS: Grossly unremarkable. PARANASAL SINUSES/MASTOIDS: Clear VASCULAR SYSTEM: Skull base flow voids intact. OTHER FINDINGS: None. IMPRESSION: Unremarkable non contrast enhanced MRI of the brain.
--- NOTE | 2016-12-18 15:23 | CP.PCM.PN ---
<Eugenie Roblero - Last Filed: 12/18/16 15:13> Subjective - Date & Time of Evaluation Date of Evaluation: 12/18/16 Time of Evaluation: 10:50 - Subjective Subjective: Rapid Response called at 10:51 AM. Patient had a witnessed seizure while getting an MRI. This is a 31 year old (4 months) female with a history of seizures. She is being seen during this hospital stay by neurology, Dr. Higgins. Patient was awake and responding to all questions in full sentences. She was able to protect her airway. Denied CP or SOB. Palpable Bp was 112. Ativan 0.5 mg IVP was administered Patient received her Keppra dose of 500mg this morning prior to the MRI. Dr. Higgins was notified and suggested administering Keppra 250mg one time dose and increasing the Keppra to 750mg PO BID to start this evening. Patient was taken back to her room on 5T Finger stick was 100 HR: 88, BP: 108/76, Temp: 98, O2: 97% on 2 L NC Stat labs were ordered (CBC,CMP,Mg,Phos,Prolactin), EKG ordered, NS at 100cc/ hour ordered. Patient was placed on engine monitor Dr. Vargas was notified of events by phone. Eugenie Roblero - PGY 1 Objective - Vital Signs/Intake and Output Vital Signs (last 24 hours): Temp Pulse Resp BP Pulse Ox 98.1 F 83 20 101/66 96 12/18/16 07:05 12/18/16 07:05 12/18/16 07:05 12/18/16 07:05 12/18/16 07:05 - Medications Medications: Current Medications Folic Acid (Folic Acid) 4 mg PO DAILY [facility] Last Admin: 12/18/16 09:49 Dose: 4 mg Sodium Chloride (Sodium Chloride 0.9%) 1,000 mls @ 100 mls/hr IV .Q10H MAX Stop: 12/18/16 21:14 Last Admin: 12/18/16 11:25 Dose: 100 mls/hr Levetiracetam (Keppra) 750 mg PO BID [facility] Multivit/Folic Acid/Iron () 1 tab PO DAILY [facility] Last Admin: 12/18/16 09:49 Dose: 1 tab Saliva Substitute (First Magic Mouthwash) 5 ml PO Q8 PRN <Kelley Nguyễn V - Last Filed: 12/18/16 23:19> Objective - Vital Signs/Intake and Output Vital Signs (last 24 hours): Temp Pulse Resp BP Pulse Ox 98.2 F 104 H 18 112/73 95 12/18/16 16:00 12/18/16 19:53 12/18/16 16:00 12/18/16 16:00 12/18/16 16:00 Intake and Output: 12/18/16 12/19/16 18:59 06:59 Intake Total 1240 Balance 1240 - Medications Medications: Current Medications Acetaminophen (Tylenol 325mg Tab) 650 mg PO Q6 PRN PRN Reason: Headache Last Admin: 12/18/16 20:57 Dose: 650 mg Folic Acid (Folic Acid) 4 mg PO DAILY [facility] Last Admin: 12/18/16 09:49 Dose: 4 mg Levetiracetam (Keppra) 750 mg PO BID [facility] Last Admin: 12/18/16 17:45 Dose: 750 mg Multivit/Folic Acid/Iron () 1 tab PO DAILY [facility] Last Admin: 12/18/16 09:49 Dose: 1 tab Saliva Substitute (First Magic Mouthwash) 5 ml PO Q8 PRN Attending/Attestation - Attestation I have personally seen and examined this patient.: Yes I have fully participated in the care of the patient.: Yes I have reviewed all pertinent clinical information, including history, physical exam and plan: Yes Notes (Text): Hospitalist Note: Responded to [facility] called this morning. Patient had witnessed seizure in the MRI trailer this morning, per discussion with air conditioning service technician while trying to complete MRI. Patient is awake, is able to guard airway, speaking in dominican but is exhibit motioning at the arms, no observed lip laceration, and responding appropriately to questioning. Patient given Ativan 0.5mg IV X1. Manual blood pressure SBP: 112. Patient transferred to back to room. Patient ordered for routine blood work: CBC, CMP, Magnesium, Prolactin. Patient placed on telemetry. Accucheck: 110. Patient's lips appeared dry. Patient started on maintenance IV fluids. Neurology on the case, Dr. Higgins, recommended for increased dose of Keppra to be given to the patient. Discussed with patient's nurse Lilly, patient had received Keppra dose prior to going to MRI this morning. VS repeated: HR: 88, BP: 108/79, Sp02:97% and T: 98 F. Resident notified patient's attending on the case, Dr. Vargas regarding events of [facility] today.
--- NOTE | 2016-12-18 22:55 | CP.PCM.PN ---
Subjective - Date & Time of Evaluation Date of Evaluation: 12/18/16 Time of Evaluation: 12:11 - Subjective Subjective: Pt seen and examined, is seizure free , no fever, MRI of brain is neg, consider discharge tommorow Objective - Vital Signs/Intake and Output Vital Signs (last 24 hours): Temp Pulse Resp BP Pulse Ox 98.2 F 104 H 18 112/73 95 12/18/16 16:00 12/18/16 19:53 12/18/16 16:00 12/18/16 16:00 12/18/16 16:00 Intake and Output: 12/18/16 12/19/16 18:59 06:59 Intake Total 1240 Balance 1240 - Medications Medications: Current Medications Acetaminophen (Tylenol 325mg Tab) 650 mg PO Q6 PRN PRN Reason: Headache Last Admin: 12/18/16 20:57 Dose: 650 mg Folic Acid (Folic Acid) 4 mg PO DAILY [facility] Last Admin: 12/18/16 09:49 Dose: 4 mg Levetiracetam (Keppra) 750 mg PO BID [facility] Last Admin: 12/18/16 17:45 Dose: 750 mg Multivit/Folic Acid/Iron () 1 tab PO DAILY [facility] Last Admin: 12/18/16 09:49 Dose: 1 tab Saliva Substitute (First Magic Mouthwash) 5 ml PO Q8 PRN - Constitutional Appears: No Acute Distress - Head Exam Head Exam: ATRAUMATIC, NORMAL INSPECTION, NORMOCEPHALIC - Eye Exam Eye Exam: EOMI, Normal appearance, PERRL Pupil Exam: NORMAL ACCOMODATION, PERRL - Respiratory Exam Respiratory Exam: Clear to Ausculation Bilateral, NORMAL BREATHING PATTERN - Cardiovascular Exam Cardiovascular Exam: REGULAR RHYTHM, +S1, +S2. absent: Murmur - GI/Abdominal Exam GI & Abdominal Exam: Soft, Normal Bowel Sounds. absent: Tenderness - Neurological Exam Neurological Exam: Alert, Awake, CN II-XII Intact, Normal Gait, Oriented x3 Assessment and Plan (1) Status: Acute (2) Seizure disorder Status: Acute
[2016-12-19 07:59] VITALS: PULSE 93; RESP 20
[2016-12-19] MEDS: Prenatal Multivit/Folic Acid/Iron Tab PO SCH (11:43)
[2016-12-19 16:43] VITALS: BP 106/65; TEMP 98.4; O2SAT 96
--- NOTE | 2016-12-19 23:34 | CP.PCM.DIS ---
Provider - Provider Date of Admission: 12/18/16 12:13 Attending physician: Meño Vargas MD Time Spent in preparation of Discharge (in minutes): 30 Diagnosis - Discharge Diagnosis (1) Status: Acute (2) Seizure disorder Status: Acute Hospital Course - Lab Results Lab Results: Most Recent Lab Values WBC 9.9 K/uL (4.8-10.8) 12/18/16 11:49 RBC 4.63 Mil/uL (3.80-5.20) 12/18/16 11:49 Hgb 13.3 g/dL (11.0-16.0) 12/18/16 11:49 Hct 39.3 % (34.0-47.0) 12/18/16 11:49 MCV 85.0 fL (81.0-99.0) 12/18/16 11:49 MCH 28.7 pg (27.0-31.0) 12/18/16 11:49 MCHC 33.8 g/dL (33.0-37.0) 12/18/16 11:49 RDW 13.7 % (11.5-14.5) 12/18/16 11:49 Plt Count 272 K/uL (130-400) 12/18/16 11:49 MPV 8.5 fL (7.2-11.7) 12/18/16 11:49 Neut % (Auto) 72.1 % (50.0-75.0) 12/18/16 11:49 Lymph % (Auto) 17.8 % (20.0-40.0) L 12/18/16 11:49 [place] % (Auto) 6.7 % (0.0-10.0) 12/18/16 11:49 Eos % (Auto) 2.7 % (0.0-4.0) 12/18/16 11:49 Baso % (Auto) 0.7 % (0.0-2.0) 12/18/16 11:49 Neut # 7.1 K/uL (1.8-7.0) H 12/18/16 11:49 Lymph # 1.8 K/uL (1.0-4.3) 12/18/16 11:49 [place] # 0.7 K/uL (0.0-0.8) 12/18/16 11:49 Eos # 0.3 K/uL (0.0-0.7) 12/18/16 11:49 Baso # 0.1 K/uL (0.0-0.2) 12/18/16 11:49 Sodium 133 mmol/L (132-148) 12/18/16 11:49 Potassium 4.0 mmol/L (3.6-5.2) 12/18/16 11:49 Chloride 103 mmol/L (98-107) 12/18/16 11:49 Carbon Dioxide 21 mmol/L (22-30) L 12/18/16 11:49 Anion Gap 13 (10-20) 12/18/16 11:49 BUN 5 mg/dL (7-17) L 12/18/16 11:49 Creatinine 0.4 MG/DL (0.7-1.2) L 12/18/16 11:49 Est GFR ( Amer) > 60 12/18/16 11:49 Est GFR (Non-Af Amer) > 60 12/18/16 11:49 POC Glucose (mg/dL) 160 mg/dL (65-110) H 12/19/16 21:02 Random Glucose 92 mg/dL (65-105) 12/18/16 11:49 Calcium 8.7 mg/dl (8.6-10.4) 12/18/16 11:49 Phosphorus 3.5 mg/dL (2.5-4.5) 12/18/16 11:49 Magnesium 1.8 mg/dL (1.6-2.3) 12/18/16 11:49 Total Bilirubin 0.4 mg/dL (0.2-1.3) 12/18/16 11:49 AST 13 U/L (14-36) L 12/18/16 11:49 ALT 18 U/L (9-52) 12/18/16 11:49 Alkaline Phosphatase 58 U/L (38-126) 12/18/16 11:49 Total Protein 6.7 g/dL (6.3-8.3) 12/18/16 11:49 Albumin 3.2 g/dL (3.5-5.0) L 12/18/16 11:49 Globulin 3.5 gm/dL (2.2-3.9) 12/18/16 11:49 Albumin/Globulin Ratio 0.9 (1.0-2.1) L 12/18/16 11:49 Prolactin 159.1 ng/mL (3.0-18.9) H 12/18/16 11:49 Urine Color Yellow (YELLOW) 12/16/16 21:15 Urine Clarity Hazy (Clear) 12/16/16 21:15 Urine pH 5.0 (5.0-8.0) 12/16/16 21:15 Ur Specific [place] 1.028 (1.003-1.030) 12/16/16 21:15 Urine Protein Negative mg/dL (NEGATIVE) 12/16/16 21:15 Urine Glucose (UA) 3+ mg/dL (Normal) H 12/16/16 21:15 Urine Ketones 1+ mg/dL (NEGATIVE) H 12/16/16 21:15 Urine Blood 2+ (NEGATIVE) H 12/16/16 21:15 Urine Nitrate Negative (NEGATIVE) 12/16/16 21:15 Urine Bilirubin Negative (NEGATIVE) 12/16/16 21:15 Urine Urobilinogen 2.0 mg/dL (0.2-1.0) H 12/16/16 21:15 Ur Leukocyte Esterase Neg Joanna/uL (Negative) 12/16/16 21:15 Urine WBC (Auto) 3 /hpf (0-5) 12/16/16 21:15 Urine RBC (Auto) 13 /hpf (0-3) H 12/16/16 21:15 Ur Squamous Epith Cells 11 /hpf (0-5) H 12/16/16 21:15 Ur Transition Epith Cell < 1 /hpf (0-3) 12/16/16 21:15 Urine Bacteria Rare (<OCC) 12/16/16 21:15 - Hospital Course Hospital Course: Pt is seizure free today MRI brain is neg pt is stable for discharge on KEPPRA BID follow up out pateint Discharge Exam - Head Exam Head Exam: ATRAUMATIC, NORMAL INSPECTION, NORMOCEPHALIC - Eye Exam Eye Exam: EOMI, Normal appearance, PERRL Pupil Exam: NORMAL ACCOMODATION, PERRL - ENT Exam ENT Exam: Mucous Membranes Moist - Respiratory Exam Respiratory Exam: Clear to PA & Lateral, NORMAL BREATHING PATTERN - Cardiovascular Exam Cardiovascular Exam: REGULAR RHYTHM, +S1, +S2 - GI/Abdominal Exam GI & Abdominal Exam: Normal Bowel Sounds Discharge Plan - Follow Up Plan Condition: GOOD Disposition: AGAINST MEDICAL ADVICE Instructions: (DC), (GEN), New-Onset Seizure in Adults (DC) , New-Onset Seizure in Adults (GEN), Epilepsy and (DC), Epilepsy and (GEN) Additional Instructions: SIGNED AGAINST MEDICAL ADVICE
== END 2016-12-19 21:42 | disposition left against medical advice (07) | DRG 886 ==
LOC: C.ER 20:18 → C.5T 22:12 → OBSVTOIN 12-18 12:13 → C.3T 12-19 05:59
PROVIDERS: ADMIT Internal Medicine; ATTEND Internal Medicine
DX: O99.353 Diseases of the nervous system complicating pregnancy, third trimester (principal); G40.909 Epilepsy, unspecified, not intractable, without status epilepticus; D64.9 Anemia, unspecified; O99.013 Anemia complicating pregnancy, third trimester; O99.343 Other mental disorders complicating pregnancy, third trimester; F41.9 Anxiety disorder, unspecified; J45.909 Unspecified asthma, uncomplicated; Z3A.18 18 weeks gestation of pregnancy; Z82.0 Family history of epilepsy and other diseases of the nervous system

== ENCOUNTER 2016-12-23 02:49 | Emergency (ER) | payer MEDICAID ==
--- NOTE | 2016-12-23 02:51 | C.PDOC ---
History Of Present Illness A 31 y/o female who is 19 weeks , was a visitor in the ER went to the bathroom, pulled the warning light, and had a seizure. Pt notes that she remember feeling an aura before having the seizure. Pt had a new onset seizure disorder and left AMA from the hospital at 12/20. At 12/19 she did not take her evening dose of Keppra today. Pt is speaking in full sentences but denies LOC, fever, chills, or any other complaints. Time Seen by Provider: 12/23/16 02:50 History Per: Patient History/Exam Limitations: no limitations Length Of Seizures (Duration): Unknown Quality Of Seizure: Generalized Precipitating Factor(s): Missed Dose Of Anti-seizure Medication Associated Symptoms: Injury As A Result Of Seizure Activity Severity: Mild Recent travel outside of the [place]: No Additional History Per: Patient Past Medical History Reviewed: Historical Data, Nursing Documentation, Vital Signs Vital Signs: Last Vital Signs Temp 98.4 F 12/23/16 02:53 Pulse 88 12/23/16 05:07 Resp 16 12/23/16 05:07 BP 101/61 12/23/16 05:07 Pulse Ox 100 12/23/16 05:07 - Medical History PMH: Anemia, Anxiety, Asthma, Gastritis, Migraine, Seizures Denies: Chronic Kidney Disease - TMS [facility] Procedures INJECT/INFUSE NEC (05/30/06) Family History: States: Unknown Family Hx - Social History Hx Tobacco Use: No Hx Alcohol Use: No Hx Substance Use: No - Immunization History Hx Tetanus Toxoid Vaccination: No Hx Influenza Vaccination: No Hx Pneumococcal Vaccination: No Review Of Systems Constitutional: Negative for: Fever, Chills Neurological: Positive for: Seizures. Negative for: Other (LOC) Physical Exam - Physical Exam Appears: Non-toxic, No Acute Distress Skin: Warm, Dry Head: Normacephalic, Tenderness (Small area of tenderness over the left temporal parietal area ) Eye(s): bilateral: Normal Inspection, PERRL, EOMI Neck: Trachea Midline, Supple Chest: Symmetrical Cardiovascular: Rhythm Regular Respiratory: No Rales, No Rhonchi, No Wheezing Gastrointestinal/Abdominal: Soft, No Tenderness, Other (Abdomen gravid) Neurological/Psych: Oriented x3, Normal Speech, Normal Motor, Normal Sensation, Other (Awake and alert, no focal deficit) ED Course And Treatment O2 Sat by Pulse Oximetry: 100 (RA) Pulse Ox Interpretation: Normal Reevaluation Time: 05:32 Reassessment Condition: Improved Disposition Counseled Patient/Family Regarding: Studies Performed, Diagnosis, Need For Followup - Disposition Referrals: Meño Vargas MD [Primary Care Provider] - Rufus Higgins MD [Staff Provider] - Disposition: HOME/ ROUTINE Disposition Time: 02:50 Condition: FAIR Instructions: Epilepsy and (ED), Epilepsy (DC) - Clinical Impression Clinical Impression: Seizure - Scribe Statement The provider has reviewed the documentation as recorded by the Scribe Shiloh hill All medical record entries made by the Scribe were at my direction and personally dictated by me. I have reviewed the chart and agree that the record accurately reflects my personal performance of the history, physical exam, medical decision making, and the department course for this patient. I have also personally directed, reviewed, and agree with the discharge instructions and disposition.
[2016-12-23 02:58] VITALS: TEMP 98.4; O2SAT 100; BMI 28.7
[2016-12-23 05:08] VITALS: BP 101/61; PULSE 88; RESP 16
== END 2016-12-23 05:55 | disposition home or self-care (01) ==
LOC: C.ER 02:49 → SUPCPDRO 02:49 → C.ER 05:55
DX: O26.892 Other specified pregnancy related conditions, second trimester (principal); G40.909 Epilepsy, unspecified, not intractable, without status epilepticus; Z3A.19 19 weeks gestation of pregnancy

== ENCOUNTER 2016-12-31 10:42 | Inpatient (IN) | payer MEDICAID ==
--- NOTE | 2016-12-31 13:23 | US ---
Indication: s/p fall at 20 weeks. Comparison: Limited OB ultrasound performed 12/17/16 Technique: Real-time ultrasound was performed through the pelvis. Findings: There is a single living fetus in breech presentation. Amniotic fluid volume is within normal limits. Anterior placenta. The placenta is not previa. There are no adnexal masses or cysts evident. Cervix length measures approximately 6.2 cm. Measurements and calculations: Fetus has a composite sonographic age of 19 weeks 6 days. This calculation is based on the biparietal diameter, head circumference, abdominal circumference, and femur length. Estimated heart rate 148.2 beats per min. Impression: Single living fetus with a composite sonographic age of 19 weeks 6 days. Estimated heart rate 148.2 beats per min. The study was performed for the emergent evaluation of fall, and the whole anatomic survey of the fetus was not performed. This should be performed on an outpatient elective basis as clinically warranted.
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
[2016-12-31 14:12] LABS: BASO % 0.4 % (0.0-2.0); EOS # 0.1 K/uL (0.0-0.7); EOS % 1.3 % (0.0-4.0); LYMPH # 1.9 K/uL (1.0-4.3); LYMPH % 18.7 % (20.0-40.0); MEAN CELL VOLUME 85.2 fL (81.0-99.0); MEAN CORPUSCULAR HEMOGLOBIN 28.7 pg (27.0-31.0); MEAN CORPUSCULAR HGB CONC 33.8 g/dL (33.0-37.0); MEAN PLATELET VOLUME 8.7 fL (7.2-11.7); MONO # 0.6 K/uL (0.0-0.8); MONO % 5.7 % (0.0-10.0); RED CELL DISTRIBUTION WIDTH 13.5 % (11.5-14.5); WHITE BLOOD COUNT 10.1 K/uL (4.8-10.8)
[2016-12-31 14:22] LABS: CHLORIDE 101 mmol/L (98-107); POTASSIUM 4.3 mmol/L (3.6-5.2); SODIUM 133 mmol/L (132-148)
[2016-12-31 14:24] LABS: AST/SGOT 24 U/L (14-36); BILIRUBIN,TOTAL 0.4 mg/dL (0.2-1.3); CARBON DIOXIDE 23 mmol/L (22-30); GFR AFRICAN-AMERICAN > 60; TOTAL PROTEIN 6.8 g/dL (6.3-8.3)
[2016-12-31 14:25] LABS: ALKALINE PHOSPHATASE 64 U/L (38-126); ALT/SGPT 20 U/L (9-52); BLOOD UREA NITROGEN 9 mg/dL (7-17); CALCIUM 8.5 mg/dl (8.6-10.4); GLUCOSE,RANDOM 80 mg/dL (65-105); RBC URINE 3 /hpf (0-3); URINE BILIRUBIN NEGATIVE (NEGATIVE); URINE BLOOD NEGATIVE (NEGATIVE); URINE CALCIUM OXALATE CRYSTALS FEW /hpf (<OCC); URINE COLOR Yellow (YELLOW); URINE GLUCOSE (UA) 3+ mg/dL (Normal); URINE KETONE TRACE mg/dL (NEGATIVE); URINE LEUKOCYTE ESTERASE 1+ Leu/uL (Negative); URINE PROTEIN NEGATIVE (NEGATIVE); URINE UROBILINOGEN NORMAL mg/dL (0.2-1.0); WBC URINE 6 /hpf (0-5)
[2016-12-31 14:52] LABS: URINE BACTERIA FEW (<OCC)
--- NOTE | 2016-12-31 19:59 | CP.PCM.CON ---
History of Present Illness - History of Present Illness History of Present Illness: Ms. Hopkins is a 31-year-old woman who is currently at her 20th week of and has a past medical history of epilepsy. She is on Keppra 750 mg BID. She took her morning dose and went to have an ultrasound of the fetus. Shortly after, she had a seizure during which she lost consciousness, fell, broke her glasses and injured her right shoulder. She was brought to the ED, where she was noted to have further right sided twitching that resolved. The baby's heart rate was slow at first, but she was told that the baby is okay. The last time the patient was here, there was a plan for work-up but she left AMA due to domestic issues. Review of Systems - Review of Systems All systems: reviewed and no additional remarkable complaints except Past Patient History - Infectious Disease Hx of Infectious Diseases: None - Past Medical History & Family History Past Medical History?: Yes - Past Social History Smoking Status: Never Smoked - CARDIAC Hx Cardiac Disorders: No - PULMONARY Hx Respiratory Disorders: Yes Hx Asthma: Yes - NEUROLOGICAL Hx Seizures: Yes - HEENT Hx HEENT Problems: No - RENAL Hx Chronic Kidney Disease: No - ENDOCRINE/METABOLIC Hx Endocrine Disorders: No - HEMATOLOGICAL/ONCOLOGICAL Hx Blood Disorders: Yes Hx Anemia: Yes - INTEGUMENTARY Hx Dermatological Problems: No - MUSCULOSKELETAL/RHEUMATOLOGICAL Hx Falls: No - GASTROINTESTINAL Hx Gastrointestinal Disorders: Yes Hx Gastritis: Yes - GENITOURINARY/GYNECOLOGICAL Hx Genitourinary Disorders: No - PSYCHIATRIC Hx Substance Use: No - SURGICAL HISTORY Hx Surgeries: Yes Hx Dilation and Curettage: Yes (for missed at 14 wga) - ANESTHESIA Hx Anesthesia: Yes Hx Anesthesia Reactions: No Hx Malignant Hyperthermia: No Meds Allergies/Adverse Reactions: Allergies Allergy/AdvReac Type Severity Reaction Status Date / Time morphine Allergy RASH Verified 12/23/16 02:51 onion Allergy ITCHING Verified 12/23/16 02:51 - Medications Medications: Current Medications Cephalexin Monohydrate (Keflex) 500 mg PO Q8 [facility] Lamotrigine (Lamictal) 25 mg PO DAILY [facility] Last Admin: 12/31/16 14:46 Dose: 25 mg Levetiracetam (Keppra) 750 mg PO BID [facility] Last Admin: 12/31/16 18:37 Dose: 750 mg Physical Exam - Constitutional Appears: Well - Head Exam Head Exam: ATRAUMATIC, NORMAL INSPECTION, NORMOCEPHALIC - Eye Exam Eye Exam: EOMI, Normal appearance, PERRL - Neck Exam Neck exam: Positive for: Normal Inspection - Respiratory Exam Respiratory Exam: Clear to Auscultation Bilateral, NORMAL BREATHING PATTERN - Cardiovascular Exam Cardiovascular Exam: REGULAR RHYTHM, +S1, +S2 - GI/Abdominal Exam GI & Abdominal Exam: Normal Bowel Sounds, Soft. absent: Tenderness - Rectal Exam Rectal Exam: Deferred - Extremities Exam Extremities exam: Positive for: normal inspection - Back Exam Back exam: NORMAL INSPECTION - Neurological Exam Neurological exam: Alert, CN II-XII Intact, Normal Gait, Oriented x3, Reflexes Normal - Expanded Neurological Exam Expanded Patient oriented to: person, place, time Cranial nerves: EOM's Intact: Normal, Facial Sensation: Normal, Nystagmus: Normal Cerebellar Function: Finger to Nose: Normal Upper motor neuron: Babinski Sign: Normal Sensory exam: Lower Extremity Light Touch: Normal, Lower Extremity Pin Prick: Normal, Upper Extremity 2 Point Discrimination: Normal, Upper Extremity Light Touch: Normal Neuro motor strength exam: Left Upper Extremity: 5, Right Upper Extremity: 5, Left Lower Extremity: 5, Right Lower Extremity: 5 DTR: Achilles Tendon Left: 2+, Achilles Tendon Right: 2+, Bicep Left: 2+, Bicep Right: 2+, Brachioradialis Left: 2+, Brachioradialis Right: 2+, Patellar Left: 2 +, Patellar Right: 2+, Tricep Left: 2+, Tricep Right: 2+ - Psychiatric Exam Psychiatric exam: Normal Affect, Normal Mood - Skin Skin Exam: Dry, Intact, Normal Color, Warm Results - Vital Signs Recent Vital Signs: Last Vital Signs Temp 98.1 F 12/31/16 17:34 Pulse 75 12/31/16 17:34 Resp 18 12/31/16 17:34 BP 98/68 L 12/31/16 17:34 Pulse Ox 98 12/31/16 17:34 - Labs Result Diagrams: 12/31/16 13:54 12/31/16 13:54 Labs: Laboratory Results - last 24 hr 12/31/16 12/31/16 12/31/16 13:54 13:54 13:54 WBC 10.1 RBC 4.35 Hgb 12.5 Hct 37.0 MCV 85.2 MCH 28.7 MCHC 33.8 RDW 13.5 Plt Count 277 MPV 8.7 Neut % (Auto) 73.9 Lymph % (Auto) 18.7 L [place] % (Auto) 5.7 Eos % (Auto) 1.3 Baso % (Auto) 0.4 Neut # 7.5 H Lymph # 1.9 [place] # 0.6 Eos # 0.1 Baso # 0.0 Sodium 133 Potassium 4.3 Chloride 101 Carbon Dioxide 23 Anion Gap 14 BUN 9 Creatinine 0.4 L Est GFR ( Amer) > 60 Est GFR (Non-Af Amer) > 60 Random Glucose 80 Calcium 8.5 L Total Bilirubin 0.4 AST 24 ALT 20 Alkaline Phosphatase 64 Total Protein 6.8 Albumin 3.4 L Globulin 3.4 Albumin/Globulin Ratio 1.0 Urine Color Yellow Urine Clarity Hazy Urine pH 5.0 Ur Specific [place] 1.028 Urine Protein Negative Urine Glucose (UA) 3+ H Urine Ketones Trace Urine Blood Negative Urine Nitrate Negative Urine Bilirubin Negative Urine Urobilinogen Normal Ur Leukocyte Esterase 1+ H Urine WBC (Auto) 6 H Urine RBC (Auto) 3 Ur Squamous Epith Cells 39 H Calcium Oxalate Crystal Few H Urine Bacteria Few H Urine Yeast (Budding) Occ H Blood Type Antibody Screen 12/31/16 14:00 WBC RBC Hgb Hct MCV MCH MCHC RDW Plt Count MPV Neut % (Auto) Lymph % (Auto) [place] % (Auto) Eos % (Auto) Baso % (Auto) Neut # Lymph # [place] # Eos # Baso # Sodium Potassium Chloride Carbon Dioxide Anion Gap BUN Creatinine Est GFR ( Amer) Est GFR (Non-Af Amer) Random Glucose Calcium Total Bilirubin AST ALT Alkaline Phosphatase Total Protein Albumin Globulin Albumin/Globulin Ratio Urine Color Urine Clarity Urine pH Ur Specific [place] Urine Protein Urine Glucose (UA) Urine Ketones Urine Blood Urine Nitrate Urine Bilirubin Urine Urobilinogen Ur Leukocyte Esterase Urine WBC (Auto) Urine RBC (Auto) Ur Squamous Epith Cells Calcium Oxalate Crystal Urine Bacteria Urine Yeast (Budding) Blood Type O POSITIVE Antibody Screen Negative Assessment & Plan (1) Seizure Assessment and Plan: Will increase Keppra to 1000 mg BID. Since she had both her 750 mg doses today , we will give her an extra 500 mg tonight and continue 1000 mg BID tomorrow. I would like to add lamictal 25 mg daily for now and begin to titrate up by doubling the dose every week until we reach the therapeutic dose of 200 mg daily. She should be followed by outpatient neurology for the titration or her primary care doctor. Eventually, we will be able to wean of Keppra and continue lamictal. An EEG should be performed during this hospitalization. Continue seizure precautions. Status: Acute
--- NOTE | 2016-12-31 22:52 | CP.PCM.HP ---
History of Present Illness - History of Present Illness History of Present Illness: Ms. Hopkins is a 31-year-old woman who is currently at her 20th week of and has a past medical history of epilepsy. She is on Keppra 750 mg BID. She took her morning dose and went to have an ultrasound of the fetus. Shortly after, she had a seizure during which she lost consciousness, fell, broke her glasses and injured her right shoulder. She was brought to the ED, where she was noted to have further right sided twitching that resolved. The baby's heart rate was slow at first, but she was told that the baby is okay. The last time the patient was here, there was a plan for work-up but she left AMA due to domestic issues. Present on Admission - Present on Admission Any Indicators Present on Admission: Yes Review of Systems - Review of Systems Systems not reviewed;Unavailable: Acuity of Condition - Constitutional Constitutional: Fatigue, Lethargy - EENT Eyes: absent: As Per HPI, Blind Spots, Blurred Vision, Change in Vision, Decreased Night Vision, Diplopia, Discharge, Dry Eye, Exophthalmos, Floaters, Irritation, Itchy Eyes, Loss of Peripheral Vision, Pain, Photophobia, Requires Corrective Lenses, Sees Flashes, Spots in Vision, Tunnel Vision, Other Visual Disturbances, Loss of Vision, Other Nose/Mouth/Throat: absent: As Per HPI, Epistaxis, Nasal Congestion, Nasal Discharge, Nasal Obstruction, Nasal Trauma, Nose Pain, Post Nasal Drip, Sinus Pain, Sinus Pressure, Bleeding Gums, Change in Voice, Dental Pain, Dry Mouth, Dysphagia, Halitosis, Hoarsness, Lip Swelling, Mouth Lesions, Mouth Pain, Odynophagia, Sore Throat, Throat Swelling, Tongue Swelling, Facial Pain, Neck Pain, Neck Mass, Other - Cardiovascular Cardiovascular: absent: As Per HPI, Acrocyanosis, Chest Pain, Chest Pain at Rest , Chest Pain with Activity, Claudication, Diaphoresis, Dyspnea, Dyspnea on Exertion, Edema, Irregular Heart Rhythm, Pain Radiating to Arm/Neck/Jaw, Leg Edema, Leg Ulcers, Lightheadedness, Orthopnea, Palpitations, Paroxysmal Nocturnal Dyspnea, Pedal Edema, Radiating Pain, Rapid Heart Rate, Slow Heart Rate, Syncope, Other - Respiratory Respiratory: absent: As Per HPI, Cough, Dyspnea, Hemoptysis, Dyspnea on Exertion , Wheezing, Snoring, Stridor, Pain on Inspiration, Chest Congestion, Excessive Mucous Production, Change in Mucous Color, Pain with Coughing, Other - Gastrointestinal Gastrointestinal: absent: As Per HPI, Abdominal Pain, Belching, Bloating, Change in Bowel Habits, Change in Stool Character, Coffee Ground Emesis, Constipation, Cramping, Diarrhea, Dyspepsia, Dysphagia, Early Satiety, Excessive Flatus, Fecal Incontinence, Heartburn, Hematemesis, Hematochezia, Loose Stools, Melena, Nausea, Odynophagia, Temesmus, Vomiting, Other - Reproductive: Female Reproductive:Female: Amenorrhea Additional comments: 20 weeks - Musculoskeletal Musculoskeletal: Myalgias, Neck Pain - Integumentary Integumentary: absent: As Per HPI, Acne, Alopecia, Bleeding Lesions, Change in Hair, Change in Nails, Change in Pigmentation, Changing Lesions, Dry Skin, Erythema, Furuncle, Hirsutism, Lesions, New Lesions, Non-Healing Lesions, Photosensitivity, Pruritus, Rash, Skin Pain, Skin Ulcer, Sores, Striae, Swelling , Unusual Bruising, Wounds, Jaundice, Other - Neurological Neurological: Abnormal Movements - Psychiatric Psychiatric: absent: As Per HPI, Abnormal Sleep Pattern, Anhedonia, Anxiety, Auditory Hallucinations, Behavioral Changes, Change in Appetite, Change in Libido, Confusion, Depression, Difficulty Concentrating, Hallucinations, Homicidal Ideation, Hopelessness, Irritability, Memory Loss, Mood Swings, Panic Attacks, Paranoia, Suicidal Ideation, Visual Hallucinations, Tactile Hallucinations, Other Past Patient History - Infectious Disease Hx of Infectious Diseases: None - Past Medical History & Family History Past Medical History?: Yes - Past Social History Smoking Status: Never Smoked - CARDIAC Hx Cardiac Disorders: No - PULMONARY Hx Respiratory Disorders: Yes Hx Asthma: Yes - NEUROLOGICAL Hx Seizures: Yes - HEENT Hx HEENT Problems: No - RENAL Hx Chronic Kidney Disease: No - ENDOCRINE/METABOLIC Hx Endocrine Disorders: No - HEMATOLOGICAL/ONCOLOGICAL Hx Blood Disorders: Yes Hx Anemia: Yes - INTEGUMENTARY Hx Dermatological Problems: No - MUSCULOSKELETAL/RHEUMATOLOGICAL Hx Falls: No - GASTROINTESTINAL Hx Gastrointestinal Disorders: Yes Hx Gastritis: Yes - GENITOURINARY/GYNECOLOGICAL Hx Genitourinary Disorders: No - PSYCHIATRIC Hx Substance Use: No - SURGICAL HISTORY Hx Surgeries: Yes Hx Dilation and Curettage: Yes (for missed at 14 wga) - ANESTHESIA Hx Anesthesia: Yes Hx Anesthesia Reactions: No Hx Malignant Hyperthermia: No Meds Allergies/Adverse Reactions: Allergies Allergy/AdvReac Type Severity Reaction Status Date / Time morphine Allergy RASH Verified 12/23/16 02:51 onion Allergy ITCHING Verified 12/23/16 02:51 Physical Exam - Constitutional Appears: No Acute Distress - Head Exam Head Exam: ATRAUMATIC, NORMAL INSPECTION, NORMOCEPHALIC - Eye Exam Eye Exam: EOMI, Normal appearance, PERRL Pupil Exam: NORMAL ACCOMODATION, PERRL - Respiratory Exam Respiratory Exam: Clear to Auscultation Bilateral, NORMAL BREATHING PATTERN - Cardiovascular Exam Cardiovascular Exam: REGULAR RHYTHM Results - Vital Signs Recent Vital Signs: Last Vital Signs Temp 98.1 F 12/31/16 17:34 Pulse 75 12/31/16 17:34 Resp 18 12/31/16 17:34 BP 98/68 L 12/31/16 17:34 Pulse Ox 98 12/31/16 17:34 - Labs Result Diagrams: 12/31/16 13:54 12/31/16 13:54 Labs: Laboratory Results - last 24 hr 12/31/16 12/31/16 12/31/16 13:54 13:54 13:54 WBC 10.1 RBC 4.35 Hgb 12.5 Hct 37.0 MCV 85.2 MCH 28.7 MCHC 33.8 RDW 13.5 Plt Count 277 MPV 8.7 Neut % (Auto) 73.9 Lymph % (Auto) 18.7 L [place] % (Auto) 5.7 Eos % (Auto) 1.3 Baso % (Auto) 0.4 Neut # 7.5 H Lymph # 1.9 [place] # 0.6 Eos # 0.1 Baso # 0.0 Sodium 133 Potassium 4.3 Chloride 101 Carbon Dioxide 23 Anion Gap 14 BUN 9 Creatinine 0.4 L Est GFR ( Amer) > 60 Est GFR (Non-Af Amer) > 60 Random Glucose 80 Calcium 8.5 L Total Bilirubin 0.4 AST 24 ALT 20 Alkaline Phosphatase 64 Total Protein 6.8 Albumin 3.4 L Globulin 3.4 Albumin/Globulin Ratio 1.0 Urine Color Yellow Urine Clarity Hazy Urine pH 5.0 Ur Specific [place] 1.028 Urine Protein Negative Urine Glucose (UA) 3+ H Urine Ketones Trace Urine Blood Negative Urine Nitrate Negative Urine Bilirubin Negative Urine Urobilinogen Normal Ur Leukocyte Esterase 1+ H Urine WBC (Auto) 6 H Urine RBC (Auto) 3 Ur Squamous Epith Cells 39 H Calcium Oxalate Crystal Few H Urine Bacteria Few H Urine Yeast (Budding) Occ H Blood Type Antibody Screen 12/31/16 14:00 WBC RBC Hgb Hct MCV MCH MCHC RDW Plt Count MPV Neut % (Auto) Lymph % (Auto) [place] % (Auto) Eos % (Auto) Baso % (Auto) Neut # Lymph # [place] # Eos # Baso # Sodium Potassium Chloride Carbon Dioxide Anion Gap BUN Creatinine Est GFR ( Amer) Est GFR (Non-Af Amer) Random Glucose Calcium Total Bilirubin AST ALT Alkaline Phosphatase Total Protein Albumin Globulin Albumin/Globulin Ratio Urine Color Urine Clarity Urine pH Ur Specific [place] Urine Protein Urine Glucose (UA) Urine Ketones Urine Blood Urine Nitrate Urine Bilirubin Urine Urobilinogen Ur Leukocyte Esterase Urine WBC (Auto) Urine RBC (Auto) Ur Squamous Epith Cells Calcium Oxalate Crystal Urine Bacteria Urine Yeast (Budding) Blood Type O POSITIVE Antibody Screen Negative Assessment & Plan (1) Epilepsy affecting Status: Acute (2) Status: Acute (3) Seizure disorder Status: Acute
--- NOTE | 2017-01-01 10:19 | CP.PCM.PN ---
Subjective - Date & Time of Evaluation Date of Evaluation: 01/01/17 Time of Evaluation: 09:00 - Subjective Subjective: Pt seen and evaluated, she had episode of seizure today , on keppra and ativan Objective - Vital Signs/Intake and Output Vital Signs (last 24 hours): Temp Pulse Resp BP Pulse Ox 98.6 F 80 17 102/63 97 01/01/17 07:25 01/01/17 07:25 01/01/17 07:25 01/01/17 07:25 01/01/17 07:25 Intake and Output: 01/01/17 01/01/17 06:59 18:59 Intake Total 110 Balance 110 - Medications Medications: Current Medications Cephalexin Monohydrate (Keflex) 500 mg PO Q8 [facility] Last Admin: 01/01/17 06:19 Dose: 500 mg Lamotrigine (Lamictal) 25 mg PO DAILY [facility] Last Admin: 01/01/17 09:09 Dose: 25 mg Levetiracetam (Keppra) 1,000 mg PO BID [facility] Last Admin: 01/01/17 09:08 Dose: 1,000 mg - Labs Labs: 12/31/16 13:54 12/31/16 13:54 - Constitutional Appears: No Acute Distress - Head Exam Head Exam: ATRAUMATIC, NORMAL INSPECTION, NORMOCEPHALIC - Eye Exam Eye Exam: EOMI, Normal appearance, PERRL Pupil Exam: NORMAL ACCOMODATION, PERRL - Respiratory Exam Respiratory Exam: Clear to Ausculation Bilateral, NORMAL BREATHING PATTERN - Cardiovascular Exam Cardiovascular Exam: REGULAR RHYTHM, +S1, +S2. absent: Murmur - GI/Abdominal Exam GI & Abdominal Exam: Soft, Normal Bowel Sounds. absent: Tenderness - Rectal Exam Rectal Exam: Deferred Assessment and Plan (1) Epilepsy affecting Status: Acute (2) Status: Acute (3) Seizure Status: Acute
--- NOTE | 2017-01-01 11:23 | PCM.RRTMUL ---
CONSERVATION BIOLOGY PROFESSOR Nurses Assessment - Situation [employer]SERVATION BIOLOGY PROFESSOR Responder Arrival Time:: 11:23 Location:: [facility] Room Number:: 670b [employer]SERVATION BIOLOGY PROFESSOR Reason for Call: Change in Mental Status (seizure) CONSERVATION BIOLOGY PROFESSOR Called By: RN - IV IV Inserted during CONSERVATION BIOLOGY PROFESSOR?: No - Respiratory Oxygen Delivery Method:: Nasal Cannula Received Nebulizer Treatments:: No Was the Patient Ventilated with Bag/Mask 100% O2?: No Secretions Suctioned?: No Was the Patient Intubated?: No Was the Patient Placed on a Ventilator?: No - Vital Signs Blood Pressure:: 102/63 Pulse Rate:: 80 Respiratory Rate:: 17 Temperature:: 98.6 F - Vital Signs at end of [employer]SERVATION BIOLOGY PROFESSOR Blood Pressure:: 116/81 Pulse Rate:: 97 - Constitutional Additional Comments: patient found in room trembling, after administration of IV ativan patient immediately responsive - Head Head Exam: ATRAUMATIC - Eyes Eye Exam: EOMI, PERRL - Respiratory Exam Respiratory Exam: NORMAL BREATHING PATTERN - Cardiovascular Exam Cardiovascular Exam: +S1, +S2 - Neurological Exam Neurological Exam: Alert, Awake Plan - A. End of [employer]SERVATION BIOLOGY PROFESSOR Vital Signs: Blood Pressure: 116/81 Pulse Rate: 97 Respiratory Rate: 20 Temperature: 98.2 F O2 Sat by Pulse Oximetry: 99 - B. Assessment of Findings&Treatment Plan CONSERVATION BIOLOGY PROFESSOR called on patient who is 20 weeks for seizure activity. Patient rolled to her side. Patient given 2mg IV ativan stat. Patient immediately responsive after administration of ativan with cessation of trembling. Stat bedside EEG ordered. Dr. Higgins, neurologist on the case, notified. No bowel or bladder incontinence noted. Patient placed on telemetry.
--- NOTE | 2017-01-01 14:34 | CP.PCM.PN ---
Subjective - Date & Time of Evaluation Date of Evaluation: 01/01/17 Time of Evaluation: 14:31 - Subjective Subjective: Ms. Hopkins was seen and examined today at bedside. She was found in NAD. According to nursing, the patient had another seizure this morning. Afterward, she did not have a post-ictal state and was back to normal. Objective - Vital Signs/Intake and Output Vital Signs (last 24 hours): Temp Pulse Resp BP Pulse Ox 98.2 F 97 H 20 116/81 97 01/01/17 11:30 01/01/17 11:30 01/01/17 11:30 01/01/17 11:30 01/01/17 07:25 Intake and Output: 01/01/17 01/01/17 06:59 18:59 Intake Total 110 Balance 110 - Medications Medications: Current Medications Cephalexin Monohydrate (Keflex) 500 mg PO Q8 [facility] Last Admin: 01/01/17 13:04 Dose: 500 mg Lamotrigine (Lamictal) 25 mg PO DAILY [facility] Last Admin: 01/01/17 09:09 Dose: 25 mg Levetiracetam (Keppra) 1,000 mg PO BID [facility] Last Admin: 01/01/17 09:08 Dose: 1,000 mg Lorazepam (Ativan) 1 mg IVP Q6H PRN PRN Reason: Seizure activity - Labs Labs: 12/31/16 13:54 12/31/16 13:54 - Neurological Exam Neurological Exam: Awake, CN II-XII Intact, Normal Gait, Oriented x3 Neuro motor strength exam: Left Upper Extremity: 5, Right Upper Extremity: 5, Left Lower Extremity: 5, Right Lower Extremity: 5 Additional comments: Neurologically non-focal and unchanged compared with yesterday's examination. Assessment and Plan (1) Seizure Assessment & Plan: Will obtain an EEG today to evaluate for any inter-ictal activity. The lack of post-ictal state and the refractory and atypical nature of these seizures may be more consistent with non-epileptic seizures. Consider psychiatric evaluation if EEG is normal. Status: Acute
--- NOTE | 2017-01-02 10:14 | PCM.PSYCH ---
Initial Psychiatric Evaluation - Initial Psychiatric Evaluation Current Medications: Active Medications Generic Name Dose Route Start Last Admin Trade Name Wilmerq PRN Reason Stop Dose Admin Cephalexin Monohydrate 500 mg 12/31/16 22:00 01/02/17 06:29 Keflex PO 500 mg Q8 [facility] Administration Lamotrigine 25 mg 12/31/16 14:45 01/02/17 10:06 Lamictal PO 25 mg DAILY [facility] Administration Levetiracetam 1,000 mg 01/01/17 10:00 01/02/17 10:06 Keppra PO 1,000 mg BID [facility] Administration Lorazepam 1 mg 01/01/17 12:16 01/02/17 06:24 Ativan IVP 1 mg Q6H PRN Administration Seizure activity Past Psychiatric History - Past Psychiatric History Pertinent Medical Hx (Current Medical&Sleep Prob, Allergies): Allergies Allergy/AdvReac Type Severity Reaction Status Date / Time morphine Allergy RASH Verified 12/23/16 02:51 onion Allergy ITCHING Verified 12/23/16 02:51 Vit#96/Ferrous Fum/FA [] 1 tab PO ACBL 12/11/14 Levetiracetam [Keppra] 750 mg PO BID 12/23/16
--- NOTE | 2017-01-02 11:22 | CP.PCM.PN ---
Subjective - Date & Time of Evaluation Date of Evaluation: 01/02/17 Time of Evaluation: 11:19 - Subjective Subjective: Ms. Hopkins was seen and examined today at bedside. She had complained of double vision despite not opening her eyes. This resolved once I examined her and discussed the findings of her EEG. I informed her that I did not believe she was having epileptic seizures and that these episodes are likely non- epileptic and generated by stress response. Objective - Vital Signs/Intake and Output Vital Signs (last 24 hours): Temp Pulse Resp BP Pulse Ox 98.1 F 88 20 107/72 95 01/02/17 07:38 01/02/17 08:37 01/02/17 07:38 01/02/17 07:38 01/02/17 07:38 Intake and Output: 01/02/17 01/02/17 06:59 18:59 Intake Total 240 Balance 240 - Medications Medications: Current Medications Cephalexin Monohydrate (Keflex) 500 mg PO Q8 [facility] Last Admin: 01/02/17 06:29 Dose: 500 mg Lamotrigine (Lamictal) 25 mg PO DAILY [facility] Last Admin: 01/02/17 10:06 Dose: 25 mg Levetiracetam (Keppra) 1,000 mg PO BID [facility] Last Admin: 01/02/17 10:06 Dose: 1,000 mg Lorazepam (Ativan) 1 mg IVP Q6H PRN PRN Reason: Seizure activity Last Admin: 01/02/17 06:24 Dose: 1 mg - Labs Labs: 12/31/16 13:54 12/31/16 13:54 - Neurological Exam Neurological Exam: Altered, Awake, CN II-XII Intact, Normal Gait, Oriented x3 Neuro motor strength exam: Left Upper Extremity: 5, Right Upper Extremity: 5, Left Lower Extremity: 5, Right Lower Extremity: 5 Assessment and Plan (1) Seizure Assessment & Plan: 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 The EEG was normal and the patient's reported episodes are atypical with twitching, no post ictal period, no significant tongue biting, or urinary/bowel incontinence. Return to baseline immediately after an event. I recommend psychiatric evaluation. Status: Acute
--- NOTE | 2017-01-02 18:21 | CP.PCM.PN ---
Subjective - Date & Time of Evaluation Date of Evaluation: 01/02/17 Time of Evaluation: 21:00 - Subjective Subjective: Pt seen and examined at [facility], as per neurology Pt seizures are Likely non- epileptic, or pseudo-seizures. The EEG was normal and the patient's reported episodes are atypical with twitching, no post ictal period, no significant tongue biting, or urinary/bowel incontinence. Return to baseline immediately after an event. I recommend psychiatric evaluation. Objective - Vital Signs/Intake and Output Vital Signs (last 24 hours): Temp Pulse Resp BP Pulse Ox 98 F 107 H 20 97/61 L 100 01/02/17 15:00 01/02/17 15:00 01/02/17 15:00 01/02/17 15:00 01/02/17 15:00 Intake and Output: 01/02/17 01/02/17 06:59 18:59 Intake Total 240 Balance 240 - Medications Medications: Current Medications Cephalexin Monohydrate (Keflex) 500 mg PO Q8 [facility] Last Admin: 01/02/17 13:27 Dose: 500 mg Lamotrigine (Lamictal) 25 mg PO DAILY [facility] Last Admin: 01/02/17 10:06 Dose: 25 mg Levetiracetam (Keppra) 750 mg PO BID MAX Lorazepam (Ativan) 1 mg IVP Q6H PRN PRN Reason: Seizure activity Last Admin: 01/02/17 06:24 Dose: 1 mg - Labs Labs: 12/31/16 13:54 12/31/16 13:54 - Constitutional Appears: No Acute Distress - Eye Exam Eye Exam: EOMI, Normal appearance, PERRL Pupil Exam: NORMAL ACCOMODATION, PERRL - ENT Exam ENT Exam: Mucous Membranes Moist, Normal Exam - Respiratory Exam Respiratory Exam: Clear to Ausculation Bilateral, NORMAL BREATHING PATTERN - Cardiovascular Exam Cardiovascular Exam: REGULAR RHYTHM, +S1, +S2. absent: Murmur - GI/Abdominal Exam GI & Abdominal Exam: Distended, Soft, Normal Bowel Sounds. absent: Tenderness - Neurological Exam Neurological Exam: Alert, Awake, CN II-XII Intact, Normal Gait, Oriented x3 - Psychiatric Exam Psychiatric exam: Anxious Assessment and Plan (1) Status: Acute (2) Seizure Status: Acute
--- NOTE | 2017-01-03 23:12 | CP.PCM.PN ---
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 The EEG was normal and the patient's reported episodes are atypical with twitching, no post ictal period, no significant tongue biting, or urinary/bowel incontinence. Return to baseline immediately after an event. Pt also had psychiatric evaluation Objective - Vital Signs/Intake and Output Vital Signs (last 24 hours): Temp Pulse Resp BP Pulse Ox 98 F 105 H 20 108/71 98 01/03/17 15:56 01/03/17 16:00 01/03/17 15:56 01/03/17 15:56 01/03/17 15:56 - Medications Medications: Current Medications Acetaminophen (Tylenol 325mg Tab) 650 mg PO Q6 PRN PRN Reason: Pain, moderate (4-7) Last Admin: 01/02/17 22:18 Dose: 650 mg Cephalexin Monohydrate (Keflex) 500 mg PO Q8 [facility] Last Admin: 01/03/17 21:32 Dose: 500 mg Lamotrigine (Lamictal) 25 mg PO DAILY [facility] Last Admin: 01/03/17 10:04 Dose: 25 mg Levetiracetam (Keppra) 750 mg PO BID [facility] Last Admin: 01/03/17 17:19 Dose: 750 mg Lorazepam (Ativan) 1 mg IVP Q6H PRN PRN Reason: Seizure activity Last Admin: 01/02/17 06:24 Dose: 1 mg - Labs Labs: 12/31/16 13:54 12/31/16 13:54 - Constitutional Appears: No Acute Distress - Head Exam Head Exam: ATRAUMATIC, NORMAL INSPECTION, NORMOCEPHALIC - Eye Exam Eye Exam: EOMI, Normal appearance, PERRL Pupil Exam: NORMAL ACCOMODATION, PERRL - Respiratory Exam Respiratory Exam: Clear to Ausculation Bilateral, NORMAL BREATHING PATTERN - Cardiovascular Exam Cardiovascular Exam: REGULAR RHYTHM, +S1, +S2. absent: Murmur - GI/Abdominal Exam GI & Abdominal Exam: Soft, Normal Bowel Sounds. absent: Tenderness Assessment and Plan (1) Status: Acute (2) Seizure Status: Acute
[2017-01-04 08:36] VITALS: RESP 18
[2017-01-04 16:09] VITALS: BP 100/67; PULSE 101; TEMP 98.2; O2SAT 97
--- NOTE | 2017-01-04 16:40 | CP.PCM.PN ---
Subjective - Date & Time of Evaluation Date of Evaluation: 01/04/17 Time of Evaluation: 16:40 - Subjective Subjective: Alert, orientedx3, NAD. Objective - Vital Signs/Intake and Output Vital Signs (last 24 hours): Temp Pulse Resp BP Pulse Ox 98.2 F 101 H 18 100/67 97 01/04/17 16:08 01/04/17 16:08 01/04/17 16:08 01/04/17 16:08 01/04/17 16:08 Intake and Output: 01/04/17 01/04/17 06:59 18:59 Intake Total 480 Balance 480 - Medications Medications: Current Medications Acetaminophen (Tylenol 325mg Tab) 650 mg PO Q6 PRN PRN Reason: Pain, moderate (4-7) Last Admin: 01/04/17 05:42 Dose: 650 mg Cephalexin Monohydrate (Keflex) 500 mg PO Q8 [facility] Last Admin: 01/04/17 13:18 Dose: 500 mg Lamotrigine (Lamictal) 25 mg PO DAILY [facility] Last Admin: 01/04/17 09:43 Dose: 25 mg Levetiracetam (Keppra) 750 mg PO BID [facility] Last Admin: 01/04/17 09:43 Dose: 750 mg Lorazepam (Ativan) 1 mg IVP Q6H PRN PRN Reason: Seizure activity Last Admin: 01/02/17 06:24 Dose: 1 mg - Labs Labs: 12/31/16 13:54 12/31/16 13:54 Assessment and Plan - Assessment and Plan (Free Text) Assessment: Patient is seen and examined. Alert and orientedx3, no complaints of pain, no seizure noted. D/W DR Vargas, cleared by psyche and neuro. Discharge plan for today, prescription given for lamictal 25mg daily,#30 to continue with keppra at home. Advised to follow up with PMD in 1 week.
--- NOTE | 2017-01-04 22:35 | CP.PCM.DIS ---
Provider - Provider Date of Admission: 12/31/16 13:29 Attending physician: Meño Vargas MD Time Spent in preparation of Discharge (in minutes): 34 Diagnosis - Discharge Diagnosis (1) Status: Acute (2) Seizure Status: Acute Hospital Course - Lab Results Lab Results: Micro Results 01/01/17 05:30 Urine,Clean Catch Urine Culture - Final MULTIPLE SPECIES. SUGGEST REPEAT SPECIMEN. Most Recent Lab Values WBC 10.1 K/uL (4.8-10.8) 12/31/16 13:54 RBC 4.35 Mil/uL (3.80-5.20) 12/31/16 13:54 Hgb 12.5 g/dL (11.0-16.0) 12/31/16 13:54 Hct 37.0 % (34.0-47.0) 12/31/16 13:54 MCV 85.2 fL (81.0-99.0) 12/31/16 13:54 MCH 28.7 pg (27.0-31.0) 12/31/16 13:54 MCHC 33.8 g/dL (33.0-37.0) 12/31/16 13:54 RDW 13.5 % (11.5-14.5) 12/31/16 13:54 Plt Count 277 K/uL (130-400) 12/31/16 13:54 MPV 8.7 fL (7.2-11.7) 12/31/16 13:54 Neut % (Auto) 73.9 % (50.0-75.0) 12/31/16 13:54 Lymph % (Auto) 18.7 % (20.0-40.0) L 12/31/16 13:54 [place] % (Auto) 5.7 % (0.0-10.0) 12/31/16 13:54 Eos % (Auto) 1.3 % (0.0-4.0) 12/31/16 13:54 Baso % (Auto) 0.4 % (0.0-2.0) 12/31/16 13:54 Neut # 7.5 K/uL (1.8-7.0) H 12/31/16 13:54 Lymph # 1.9 K/uL (1.0-4.3) 12/31/16 13:54 [place] # 0.6 K/uL (0.0-0.8) 12/31/16 13:54 Eos # 0.1 K/uL (0.0-0.7) 12/31/16 13:54 Baso # 0.0 K/uL (0.0-0.2) 12/31/16 13:54 Sodium 133 mmol/L (132-148) 12/31/16 13:54 Potassium 4.3 mmol/L (3.6-5.2) 12/31/16 13:54 Chloride 101 mmol/L (98-107) 12/31/16 13:54 Carbon Dioxide 23 mmol/L (22-30) 12/31/16 13:54 Anion Gap 14 (10-20) 12/31/16 13:54 BUN 9 mg/dL (7-17) 12/31/16 13:54 Creatinine 0.4 MG/DL (0.7-1.2) L 12/31/16 13:54 Est GFR ( Amer) > 60 12/31/16 13:54 Est GFR (Non-Af Amer) > 60 12/31/16 13:54 Random Glucose 80 mg/dL (65-105) 12/31/16 13:54 Calcium 8.5 mg/dl (8.6-10.4) L 12/31/16 13:54 Total Bilirubin 0.4 mg/dL (0.2-1.3) 12/31/16 13:54 AST 24 U/L (14-36) 12/31/16 13:54 ALT 20 U/L (9-52) 12/31/16 13:54 Alkaline Phosphatase 64 U/L (38-126) 12/31/16 13:54 Total Protein 6.8 g/dL (6.3-8.3) 12/31/16 13:54 Albumin 3.4 g/dL (3.5-5.0) L 12/31/16 13:54 Globulin 3.4 gm/dL (2.2-3.9) 12/31/16 13:54 Albumin/Globulin Ratio 1.0 (1.0-2.1) 12/31/16 13:54 Urine Color Yellow (YELLOW) 12/31/16 13:54 Urine Clarity Hazy (Clear) 12/31/16 13:54 Urine pH 5.0 (5.0-8.0) 12/31/16 13:54 Ur Specific [place] 1.028 (1.003-1.030) 12/31/16 13:54 Urine Protein Negative mg/dL (NEGATIVE) 12/31/16 13:54 Urine Glucose (UA) 3+ mg/dL (Normal) H 12/31/16 13:54 Urine Ketones Trace mg/dL (NEGATIVE) 12/31/16 13:54 Urine Blood Negative (NEGATIVE) 12/31/16 13:54 Urine Nitrate Negative (NEGATIVE) 12/31/16 13:54 Urine Bilirubin Negative (NEGATIVE) 12/31/16 13:54 Urine Urobilinogen Normal mg/dL (0.2-1.0) 12/31/16 13:54 Ur Leukocyte Esterase 1+ Joanna/uL (Negative) H 12/31/16 13:54 Urine WBC (Auto) 6 /hpf (0-5) H 12/31/16 13:54 Urine RBC (Auto) 3 /hpf (0-3) 12/31/16 13:54 Ur Squamous Epith Cells 39 /hpf (0-5) H 12/31/16 13:54 Calcium Oxalate Crystal Few /hpf (<OCC) H 12/31/16 13:54 Urine Bacteria Few (<OCC) H 12/31/16 13:54 Urine Yeast (Budding) Occ /hpf (NEGATIVE) H 12/31/16 13:54 Urine Opiates Screen Negative (NEGATIVE) 01/03/17 12:13 Urine Methadone Screen Negative (NEGATIVE) 01/03/17 12:13 Ur Barbiturates Screen Negative (NEGATIVE) 01/03/17 12:13 Ur Phencyclidine Scrn Negative (NEGATIVE) 01/03/17 12:13 Ur Amphetamines Screen Negative (NEGATIVE) 01/03/17 12:13 U Benzodiazepines Scrn Negative (NEGATIVE) 01/03/17 12:13 U Oth Cocaine Metabols Negative (NEGATIVE) 01/03/17 12:13 U Cannabinoids Screen Negative (NEGATIVE) 01/03/17 12:13 Blood Type O POSITIVE 12/31/16 14:00 Antibody Screen Negative 12/31/16 14:00 - Hospital Course Hospital Course: Patient is seen and examined. Alert and orientedx3, no complaints of pain, no seizure noted, cleared by psyche and neuro. Discharge plan for today, prescription given for lamictal 25mg daily,#30 to continue with keppra at home. Advised to follow up with PMD in 1 week. Discharge Exam - Head Exam Head Exam: ATRAUMATIC, NORMAL INSPECTION, NORMOCEPHALIC - Eye Exam Eye Exam: EOMI, Normal appearance, PERRL Pupil Exam: NORMAL ACCOMODATION, PERRL - ENT Exam ENT Exam: Mucous Membranes Moist - Respiratory Exam Respiratory Exam: Clear to PA & Lateral, NORMAL BREATHING PATTERN - Cardiovascular Exam Cardiovascular Exam: REGULAR RHYTHM, +S1, +S2 - GI/Abdominal Exam GI & Abdominal Exam: Distended - Rectal Exam Rectal Exam: Deferred - Neurological Exam Neurological exam: Alert, CN II-XII Intact, Normal Gait, Oriented x3, Reflexes Normal - Psychiatric Exam Psychiatric exam: Normal Affect, Normal Mood Discharge Plan - Discharge Medications Prescriptions: lamoTRIgine [Lamictal] 25 mg PO DAILY #30 tab - Follow Up Plan Condition: GOOD Disposition: HOME/ ROUTINE Instructions: Lamotrigine (By mouth), Recurrent Seizures in Adults (DC) Additional Instructions: Follow in the office in one week Referrals: Meño Vargas MD [Staff Provider] -
--- NOTE | 2017-01-05 09:35 | EEG ---
DATE: 01/01/2017 CONDITION OF RECORDING: Awake and drowsy EEG. REQUESTING PHYSICIAN: Dr. Meño Vargas. REASON FOR EEG: Possible seizures. Medications were reviewed per the nurse's reconciliation sheet. INTERPRETATION: This is a multichannel EEG recording using the international 10/20 placement. The re sting record was well organized with a dominant posterior rhythm that was sustained and consisted of an 8-10 Hz rhythm with 20-50 microvolt alpha. This attenuated with eye opening. During drowsiness, there was some mild attenuation slowing in the background rhythm. Stage II sleep was not achieved. Hyperventilation was not performed. Photic stimulation did not affect the background rhythm. There was prominent muscle artifact that was noted. The patient did exhibit posterior occipital transient sharp waves. IMPRESSION: This is a normal awake and drowsy EEG recording. The presence of the posterior occipita l transient sharp waves is a benign finding. This EEG may not effectively rule out seizures. If cli nically indicated, the patient may require 24-hour ambulatory EEG. Rufus Higgins MD cc: [id number] TT: 01/02/2017 11:28:27 Confirmation # [id number] Dictation # [id number] pradeep
== END 2017-01-04 17:00 | disposition home or self-care (01) | DRG 886 ==
LOC: C.EROB 10:42 → C.9E 13:29 → C.6T 17:24
PROVIDERS: ADMIT Internal Medicine; ATTEND Internal Medicine
DX: O99.352 Diseases of the nervous system complicating pregnancy, second trimester (principal); G40.909 Epilepsy, unspecified, not intractable, without status epilepticus; O99.512 Diseases of the respiratory system complicating pregnancy, second trimester; J45.909 Unspecified asthma, uncomplicated; Z3A.20 20 weeks gestation of pregnancy; Z79.899 Other long term (current) drug therapy

== ENCOUNTER 2017-01-11 14:59 | Emergency (ER) | payer MEDICAID ==
[2017-01-11 14:59] VITALS: BMI 29.5
[2017-01-11 15:09] VITALS: RESP 20; TEMP 99
[2017-01-11] MEDS ORDERED: Sodium Chloride 0.9% 1,000 ML IV ONE (16:04)
[2017-01-11 16:26] LABS: CHLORIDE 106 mmol/L (98-107); SODIUM 137 mmol/L (132-148)
[2017-01-11 16:27] LABS: BASO % 0.2 % (0.0-2.0); EOS # 0.1 K/uL (0.0-0.7); EOS % 1.3 % (0.0-4.0); HEMATOCRIT 37.5 % (34.0-47.0); LYMPH # 2.1 K/uL (1.0-4.3); LYMPH % 22.6 % (20.0-40.0); MEAN CELL VOLUME 85.4 fL (81.0-99.0); MEAN CORPUSCULAR HEMOGLOBIN 27.9 pg (27.0-31.0); MEAN CORPUSCULAR HGB CONC 32.7 g/dL (33.0-37.0); MEAN PLATELET VOLUME 8.9 fL (7.2-11.7); MONO # 0.5 K/uL (0.0-0.8); MONO % 5.8 % (0.0-10.0); NRBC % 0.1 % (0.0-2.0); POTASSIUM 3.5 mmol/L (3.6-5.2); RED CELL DISTRIBUTION WIDTH 13.4 % (11.5-14.5); WHITE BLOOD COUNT 9.4 K/uL (4.8-10.8)
[2017-01-11 16:29] LABS: ALB/GLOB RATIO 1.2 (1.0-2.1); ALKALINE PHOSPHATASE 65 U/L (38-126); ALT/SGPT 13 U/L (9-52); AST/SGOT 12 U/L (14-36); BILIRUBIN,TOTAL 0.6 mg/dL (0.2-1.3); BLOOD UREA NITROGEN 8 mg/dL (7-17); CALCIUM 9.1 mg/dl (8.6-10.4); CARBON DIOXIDE 19 mmol/L (22-30); GFR AFRICAN-AMERICAN > 60; GLUCOSE,RANDOM 85 mg/dL (65-105); TOTAL PROTEIN 6.7 g/dL (6.3-8.3)
[2017-01-11 16:30] LABS: MAGNESIUM 1.9 mg/dL (1.6-2.3)
[2017-01-11 17:33] VITALS: BP 121/72; PULSE 74; O2SAT 100
--- NOTE | 2017-01-11 17:54 | C.PDOC ---
Time Seen by Provider: 01/11/17 15:54 Chief Complaint (Nursing): Seizure History Per: Patient Recent Seizure Activity Began: Just Before Arrival Number Of Seizures: One Length Of Seizures (Duration): Minutes (3?) Quality Of Seizure: Generalized Severity: Moderate Additional History Per: Prior Records Past Medical History Reviewed: Historical Data, Nursing Documentation, Vital Signs Vital Signs: Last Vital Signs Temp 99.0 F 01/11/17 15:07 Pulse 74 01/11/17 17:31 Resp 20 01/11/17 17:31 BP 121/72 01/11/17 17:31 Pulse Ox 100 01/11/17 17:31 - Medical History PMH: Anemia, Anxiety, Asthma, Gastritis, Migraine, Seizures Other PMH: Pt is 22 weeks - [facility] Procedures INJECT/INFUSE NEC (05/30/06) Family History: States: Unknown Family Hx - Social History Hx Tobacco Use: No Hx Alcohol Use: No Hx Substance Use: No - Immunization History Hx Tetanus Toxoid Vaccination: No Hx Influenza Vaccination: No Hx Pneumococcal Vaccination: No Review Of Systems Except As Marked, All Systems Reviewed And Found Negative. Constitutional: Negative for: Fever, Weakness Cardiovascular: Negative for: Chest Pain Respiratory: Negative for: Shortness of Breath Gastrointestinal: Negative for: Abdominal Pain Musculoskeletal: Negative for: Neck Pain Neurological: Positive for: Seizures. Negative for: Weakness, Numbness Psych: Negative for: Psychosis Physical Exam - Physical Exam Appears: Non-toxic, No Acute Distress Skin: Normal Color, Warm, Dry, No Rash Head: Atraumatic, Normacephalic Eye(s): bilateral: PERRL, EOMI Neck: Normal ROM, Supple Cardiovascular: Rhythm Regular Respiratory: Normal Breath Sounds, No Accessory Muscle Use Gastrointestinal/Abdominal: Soft, Other (Gravid) Extremity: Normal ROM Neurological/Psych: Oriented x3, Normal Speech, Normal Cognition, Normal Motor, Normal Sensation ED Course And Treatment - Laboratory Results Result Diagrams: 01/11/17 16:14 01/11/17 16:14 O2 Sat by Pulse Oximetry: 100 Pulse Ox Interpretation: Normal - Physician Consult Information Physician Contacted: Rufus Higgins (Neuro) Outcome Of Conversation: He states that he evaluated this pt during her last admission and that she had a normal MRI and EEG. He states pt has pseudoseizures. Progress - Interventions Interventions:: Observation, Intravenous fluid - Medications Administered Oral: Acetaminophen - Data Reviewed Data Reviewed: Lab, Old records - Patient Status Patient status: Mostly improved - Continuity of Care Discussed patient case with:: Patient, ED Nurse Discussed pt. case with data processing systems consultant/specialty: Neurology - Patient Plan Patient Plan: Discharge Disposition Counseled Patient/Family Regarding: Studies Performed, Diagnosis, Need For Followup, Rx Given - Disposition Disposition: HOME/ ROUTINE Disposition Time: 17:56 Condition: IMPROVED Additional Instructions: You are being transferred to L&D for further evaluation. Instructions: Epilepsy and (ED) - Clinical Impression Clinical Impression: Pseudoseizures
--- NOTE | 2017-01-11 18:56 | OBHP ---
Datetime: 01/11/2017 18:48 IP Adm Impression: , intrauterine IP Chief Complaint Other: seizures Admit Comment, IP Provider: at 21.4weeks came to er as she has an eposode of seizures yesterday and today. when they were pressing her belly she felt some discomfort. she was send for that.no dysu yessy, no vb, no ctxs. obhx 3 x pmh sezures med pnv, lamictal,keppra all morphine psh de soch de ve closed bss +fh,+fm witnessed by pateint and nurses a/p at 21+weeks with seizures/ poss round ligament pain ua cont toco cont close observation Pelvic Type - PN: Adequate Extremities - PN: Normal Abdomen - PN: Normal Back - PN: Normal Breast - PN: Normal Lungs - PN: Not Done Heart - PN: Normal Thyroid - PN: Not Done Neurologic - PN: Normal HEENT - PN: Normal General - PN: Normal FHR - Baseline A Provider: 130 Contraction Comments Provider: none Comments, ACOG Physical Exam: gravid,non tender ext no edema,no calf ten Vital Signs Provider: Reviewed; Within Normal Limits NICHD Variability Prov Fetus A: Moderate 6-25bpm Dilatation, Provider: 0 Effacement, Provider: 0 Station, Provider: -3 Genitourinary Exam: Normal DTRs - PN: Normal Datetime: 12/31/2016 11:37 EGA AdmitDate IP: 20.0
[2017-01-11 19:13] LABS: URINE BACTERIA FEW (<OCC); URINE BILIRUBIN NEGATIVE (NEGATIVE); URINE BLOOD NEGATIVE (NEGATIVE); URINE CALCIUM OXALATE CRYSTALS MOD /hpf (<OCC); URINE GLUCOSE (UA) NORMAL (Normal); URINE KETONE 2+ mg/dL (NEGATIVE); URINE LEUKOCYTE ESTERASE 1+ Leu/uL (Negative); URINE PROTEIN 1+ mg/dL (NEGATIVE); WBC URINE 5 /hpf (0-5)
[2017-01-11 19:18] LABS: URINE COLOR YELLOW (YELLOW)
--- NOTE | 2017-01-11 19:26 | OBHP ---
Datetime: 01/11/2017 18:48 Admit Comment, IP Provider: at 21.4weeks came to er as she has an eposode of seizures yesterday and today. when they were pressing her belly she felt some discomfort. she was send for that.no dysu yessy, no vb, no ctxs. obhx 3 x pmh sezures med pnv, lamictal,keppra all morphine psh de soch de ve closed bss +fh,+fm witnessed by pateint and nurses a/p at 21+weeks with seizures/ poss round ligament pain ua cont toco cont close observation 19.30 ua 1+le, 2+ketones plan dc home kelex 250 mg bid x 5days f/u neurologist f/u in clinic
--- NOTE | 2017-01-11 19:27 | OBDCSUM ---
Datetime: 01/11/2017 19:25 Discharged to, Provider: Home Follow up at, Provider: 1-2 Follow up in weeks, Provider: clinic Discharge Comment, Provider: dc home kelex 250 mg bid x 5days f/u neurologist f/u in clinic Discharge Diagnosis Prov Other: 21weeks uti
== END 2017-01-11 19:25 | disposition home or self-care (01) ==
LOC: C.EROB 14:59 → C.ER 14:59 → C.EROB 19:25
DX: O26.892 Other specified pregnancy related conditions, second trimester (principal); G40.909 Epilepsy, unspecified, not intractable, without status epilepticus; Z3A.21 21 weeks gestation of pregnancy
CPT/HCPCS: 80053; 81001; 83735; 85025; 99285; J7040